=== PATIENT | male | born 1975 | race Caucasian/White ===

== ENCOUNTER 2022-08-03 14:00 | Outpatient (CLI) | payer OTHER, SELFPAY ==
--- NOTE | ~2022-08-03 | XR_ITS ---
XR abdomen/kub 1V 08/03/2022 14:34 Indication: Kidney stones Procedure: KUB Comparison: No prior studies for comparison. Findings: Bowel gas pattern nonobstructive. There is a right internal ureteral stent. No calcificatio ns are identified to suggest renal or ureteral stones. Moderate lumbar spondylosis. Moderate osteoart hritis of the hips. Impression: 1: No acute abdominal abnormality. Reviewed, dictated and finalized at location A. Impression: 1: No acute abdominal abnormality.
== END 2022-08-03 14:01 | disposition home or self-care (01) ==
LOC: ANHIMG 14:09
PROVIDERS: PCP Urology; Visit Provider Urology
DX: N20.0 Calculus of kidney (principal); Z87.442 Personal history of urinary calculi
CPT/HCPCS: 74018

== ENCOUNTER 2023-04-13 11:42 | Outpatient (CLI) | payer OTHER, SELFPAY ==
[2023-04-13 12:22] LABS: Urine Cotinine NEGATIVE
== END 2023-04-13 11:43 | disposition home or self-care (01) ==
LOC: ANHLAB 11:44
PROVIDERS: Visit Provider Orthopaedic Surgery
DX: M16.11 Unilateral primary osteoarthritis, right hip (principal); F17.200 Nicotine dependence, unspecified, uncomplicated
CPT/HCPCS: 80307

== ENCOUNTER 2023-05-24 07:41 | Outpatient (CLI) | payer OTHER, SELFPAY ==
[2023-05-24 09:11] LABS: Basophils Percent Auto 0.5 % (0.2-1.2); Eosinophils Absolute Auto 0.2 K/mm3 (0-0.3); Eosinophils Percent Auto 2.5 % (0-4.4); Hemoglobin 14.6 g/dL (14.0-18.0); Immature Granulocyte Absolute 0.01 K/mm3 (0.00-0.031); Immature Granulocyte Percent A 0.2 % (0-0.5); Lymphocytes Absolute Auto 2.17 K/mm3 (0.9-3.2); Lymphocytes Percent Auto 34.5 % (18.3-44.2); Mean Corpuscular HGB Conc 33.2 g/dl (32-36); Mean Corpuscular Hemoglobin 33.2 pg (26-34); Mean Platelet Volume 9.4 fl (7.4-10.4); Monocytes Absolute Auto 0.7 K/mm3 (0.1-0.6); Monocytes Percent Auto 11.4 % (2.6-8.5); Neutrophils Absolute Auto 3.2 K/mm3 (1.3-6.7); Neutrophils Percent Auto 50.9 % (45.5-73.1); Platelet Count Result 181 k/mm3 (150-375); Red Cell Distribution Width 11.8 % (11.5-14.5); White Blood Count 6.3 K/mm3 (4.5-10.0)
[2023-05-24 09:20] LABS: Albumin Level 4.6 g/dL (3.5-5.1); Estimated Glomerular Filt Rate > 60; Glucose 83 mg/dL (65-110); Urine Cotinine NEGATIVE
[2023-05-24 09:25] LABS: Hemoglobin A1C 5.2 % (<5.7)
== END 2023-05-24 07:42 | disposition home or self-care (01) ==
PROVIDERS: Visit Provider Orthopaedic Surgery
DX: M16.11 Unilateral primary osteoarthritis, right hip (principal); Z01.818 Encounter for other preprocedural examination
CPT/HCPCS: 80307; 82040; 82565; 82947; 83036; 85025; 87081

== ENCOUNTER 2023-06-21 01:53 | Day surgery (SDC) | payer OTHER, SELFPAY ==
[2023-05-24 07:47] VITALS: BP 139/90; PULSE 80; RESP 16; TEMP 37; O2SAT 100
[2023-05-24 08:09] VITALS: BMI 39.2
--- NOTE | 2023-05-24 08:34 | PC.NURSE ---
Report to the Outpatient Waiting Room, entrance under the green pavilion located off [facility], at time __10:00AM on date ___06/21/23____. Planned Procedure Time: __12:00PM . Time changes happen often and if your time is changed the preop area will call you the afternoon before. - You and your visitor will be asked to self-screen and do not enter if you have any COVID symptoms. - A mask is optional within the hospital at this time. Patients may have clear liquids (water, carbonated beverages, clear teas, apple juice) until 3 hours prior to surgery with a maximum of 20 ounces. - No food from midnight until time of surgery Take the following medications with a SIP of water the morning of surgery: ___BUPROPION DO NOT STOP ANY OF YOUR OTHER PRESCRIPTION MEDICATIONS PRIOR TO SURGERY ?EXCEPT THE FOLLOWING Medications to discontinue per physician __HOLD MELOXICAM, IBUPROFEN, ALEVE 7 DAYS PRE-OP- LAST DOSE-06/14/23 AND HOLD ALL VITAMINS/SUPPLEMENTS 3 DAYS PRE-OP PER ANESTHESIA- LAST DOSE 06/17/23 Please no make-up, nail malaysian, hairspray, perfume, deodorant, or body powder the day of surgery. No jewelry (including any body piercings) or valuables the day of surgery, leave them at home. Please take a shower or bath the night before, or the morning of, surgery with an antibacterial soap. Wear comfortable, loose fitting clothing. Children are encouraged to wear pajamas. - Jewelry must be removed prior to entering the operating room. Rings and piercings that are not removed may be cut off. - The hospital will not accept responsibility for valuables. - Please leave all valuables, including medications, at home the day of surgery. If you are going home after surgery, a licensed crude oil driver must drive you home. - NO public transportation without another adult if you receive anesthesia. - We recommend that an adult stay with you for 24 hours following discharge. - We also recommend that you do not drive, make important decision, drink alcoholic beverages, or take any drugs that were not prescribed by your health care provider for at least 24 hours after your discharge time. Follow any additional instructions given to you from your surgeon. If you or anyone in your household have experienced Covid symptoms in the past week, please notify your surgeon or the nurse liaison at the phone number below for possible testing. Telephone instructions given to __PATIENT and asked if any additional questions and then verbalized understanding. Patient advised to call surgeon office or pre surgery nurse liaison [phone] if any additional questions.
[2023-06-21] VITALS (11 sets, daily range): BP systolic 122–142; BP diastolic 71–93; PULSE 54–93; RESP 14–18; TEMP 36.2–36.7; O2SAT 95–100
--- NOTE | ~2023-06-21 | XR_ITS ---
EXAMINATION: XR hip RT min 2V DATE: 06/21/2023 14:52 INDICATION: Right total hip arthroplasty TECHNIQUE: Anteroposterior and cross-table lateral views of the right hip were obtained. COMPARISON: 03/08/2023 FINDINGS: Interval placement of a noncemented right total hip arthroplasty appears well seated in near-anatomic alignment. No fracture. Expected small amount of soft tissue gas at the operative bed. IMPRESSION: 1. Expected appearance of a right total hip arthroplasty which is in near-anatomic alignment. Reviewed, dictated and finalized at location B. IMPRESSION: 1. Expected appearance of a right total hip arthroplasty which is in near-anato edvin alignment.
--- NOTE | 2023-06-21 09:21 | WPDHPUPDATE1 ---
History and Physical Update Update Date/Time: 06/21/23 09:21 History and Physical has been reviewed, including an updated exam of the patient. There are NO changes in the patient's condition. Risks, benefits, and alternatives have been discussed and questions answered. Patient agrees to proceed with procedure.
[2023-06-21] MEDS: ACETAMINOPHEN 500 MG TABLET 1000 MG PO (10:55)
--- NOTE | 2023-06-21 10:55 | WPDANESEPPF ---
Anes - Initial Pre Proc Eval Procedure: Operation Date: 06/21/23 12:00 Proposed Procedures p Right Total Hip Arthroplasty - Jose Izquierdo MD Date/Time: 06/21/23 10:55 Surgeon: Jose Izquierdo MD Pre Op Diagnosis: Prim OA Rt Hip Patient Data Age: 48 Gender: M Height: 1.75 m Weight: 116.3 kg Last Vital Signs Temp 36.2 C L 06/21/23 09:48 Pulse 72 06/21/23 09:48 Resp 18 06/21/23 09:48 BP 142/88 H 06/21/23 09:48 Pulse Ox 100 06/21/23 09:48 O2 Del Method Room Air 06/21/23 09:48 Allergies Allergy/AdvReac Type Severity Reaction Status Date / Time No Known Allergies Allergy Verified 06/21/23 09:50 Home Medications Medication Instructions Recorded Confirmed Type atorvastatin 10 mg tablet 10 mg PO HS 03/08/23 06/21/23 History cyclobenzaprine 5 mg tablet 5 mg PO TID PRN Muscle Spasm 03/08/23 06/21/23 History pantoprazole 40 mg tablet,delayed 40 mg PO QAM 03/08/23 06/21/23 History release acetaminophen 500 mg capsule 1,000 mg PO Q6H PRN Pain 05/24/23 06/21/23 History famotidine 40 mg tablet 40 mg PO DAILY 05/24/23 06/21/23 History ferrous sulfate 325 mg (65 mg 325 mg PO 4XW 05/24/23 06/21/23 History iron) tablet ibuprofen 200 mg capsule 200 mg PO Q6H PRN Pain 05/24/23 06/21/23 History multivitamin-ferrous 1 tablet PO DAILY 05/24/23 06/21/23 History fumarate-folic acid 18 mg-400 mcg tablet (Centrum) naproxen sodium 220 mg capsule 220 mg PO BID PRN Pain 05/24/23 06/21/23 History (Aleve) tamsulosin 0.4 mg capsule 0.4 mg PO HS 05/24/23 06/21/23 History trazodone 100 mg tablet 100 mg PO HS PRN Insomnia 05/24/23 06/21/23 History Patient hx anesthesia problems: none Family hx anesthesia problems: none Results Review: All pre-operative results and documents have been reviewed as part of the pre-operative evaluation. [facility] Past Medical History Medical History (Updated 06/21/23 @ 10:56 by Viktor Wood MD) Current smoker Diabetes History of stress test ALLIE (obstructive sleep apnea) Surgical History Surgical History H/O gastric sleeve (~2015) History of medial meniscus repair of right knee (~2005) Family History Family History Unknown Cancer Social History Social History Smoking packs per day: 2 Smoking cigarettes per day: 40.0 Years smoked: 6 Smoking pack-years: 12.00 Smoking status: Former smoker Tobacco type: cigarettes Smoking end date: 04/24/23 Additional smoking assessment comments: USING NICOTINE-FREE VAPING CURRENTLY Alcohol intake: former Alcohol use details: VERY HEAVY DRINKER [id number] Lack of Transportation: No Lack of Food: Never True Current Housing: I Have Housing Concerned About Future Housing: No Difficulty Paying Gas/Electric Bills: No Difficulty Paying for Meds: No Currently Unemployed: No Education: High School Diploma/GED Difficulty w/ Childcare or Family Care: No Living arrangements: with family Additional living arrangements comments: & [place] Spiritual care concerns: No Anes - Eval Final PreProcedure Day of Procedure 06/21/23 10:55 Heart: regular rate and rhythm Lungs: clear to auscultation Airway: Mallampati scale class 1 Neurological: alert and oriented Last oral intake: >/= 8 hours ASA classification: IV Emergent: no Anesthetic plan: proceed Anesthesia type and monitoring: general ETT and standard monitoring Results Review: All pre-operative results and documents have been reviewed as part of the pre-operative evaluation. Informed Consent: The patient's anesthetic plan and its attendant risks and benefits were discussed with the patient/family/POA. Questions were solicited and answers provided to the satisfaction of the patient/family/POA.
[2023-06-21] MEDS: LACTATED RINGERS 1,000 ML 30 ML IV CONT ×2 (11:00→14:41)
[2023-06-21] MEDS: TRANEXAMIC ACID 1,000MG/ISO100 1,000 MG/100 ML BAG 200 MG IVPB (11:04)
[2023-06-21] MEDS: ceFAZolin 2 GM/D5W 50 ML 2 GM/50 ML BAG IVPB (12:18)
[2023-06-21] MEDS: fentaNYL CITRATE INJ (*CRX) 100 MCG/2 ML VIAL 25 MCG IV PUSH ×8 (14:50→15:47)
--- NOTE | 2023-06-21 15:13 | W.PM.PROC2 ---
Procedure Note - Detailed Date of Procedure 06/21/23 Pre-op Diagnosis Right hip degenerative arthritis. Post-op Diagnosis Same Procedure Performed Right Total Hip Arthroplasty Surgeon Jose Izquierdo MD Anesthesia General Findings Low femoral anteversion. Elevated liner used. Good bone quality. Description of Procedure The patient was given preoperative antibiotics. A general anesthetic was administered. The patient was carefully placed in the lateral decubitus position on the PEG board. The shoulders and hips were carefully positioned for component and leg length positioning reference. The hip was prepped and draped in the usual sterile fashion. A longitudinal incision was created over the posterior aspect of the greater trochanter. Careful dissection was brought down through the deep fascia with electrocautery. A minimally invasive optimized posterior approach to the hip was performed. The short external rotators and capsule were taken down in an L-shaped capsulotomy. The tissue was tagged for later repair using number 2 high strength suture. The femoral neck was measured and taken in situ. The femoral head was removed. The acetabulum was carefully exposed. The inferior capsule was released. The labrum was resected. The acetabulum was sequentially reamed to the intended cup size. The cup was impacted into position with excellent press-fit. Typical anatomic landmarks, including the bony contact points as well as the inferior transverse acetabular ligament were used to confirm cup positioning with preoperative templating. Attention was turned to the femur, which was carefully exposed. The hip was reamed and then broached sequentially. Excellent press-fit was obtained with the broach. The hip was trialed. Measurements were utilized, including the lesser trochanter as well as the center of the femoral head and the tip of the trochanter, and excellent assessment of the offset and leg lengths were confirmed. The real component was impacted into position. Trialing confirmed appropriate leg length and offset with soft tissue balancing as well apparent feel of the leg, both at the knee and the heel. Soft tissues were assessed using the the iliotibial band. Reduction of the posterior capsule and external rotators were also used as a secondary assessment. The hip was copiously irrigated with pulsatile lavage antibiotic solution periodically throughout the procedure. The real components were then assembled and reduced. The hip was stable throughout typical maneuvers, including extension, external rotation to 70 degrees, the position of sleep as well as flexion to 90 degrees with internal rotation past 45 degrees. The shake test confirmed stability without impingement. Osteophytes were removed as necessary. The short external rotators and capsule were repaired back to the posterior trochanter through drill holes. The deep fascia was repaired with running number 2 Quill suture, followed by 0 Stratafix suture and 2-0 Stratafix suture in the dermis. Steri-Strips were placed on the skin, followed by a sterile silver occlusive dressing. There were no complications. Meticulous hemostasis was maintained with the AquaMantys device. The patient was brought to the recovery room in stable condition. There were no complications. Implants The Accolade II hip stem, 127 degree size 5 , was utilized with excellent press-fit. The 54 mm Trident II acetabular component was impacted with excellent press-fit stability. The +0, 36 mm Biolox ceramic femoral head was utilized. 10 degree elevated liner. Estimated Blood Loss -500.0 Drains No Packing No Pathology None sent Complications No immediate complications Condition Stable Disposition PACU [facility] Billing Surgery - Charge Forward: Surgery Billing
--- NOTE | 2023-06-21 16:21 | ADMGEN ---
This patient, Juan Dean, was admitted to [facility] Surg Room 323-02. Patient/family oriented to hospital policies and general routines including ID bracelet, bed and alarms, visiting hours, pain management, procedures, bathroom and other care routines, personal items, smoking policy, room service/diet, and visiting hours. Information on how to activate the Rapid Response Team has been discussed. Patient/Family are encouraged to report perceived risks to care and to ask questions if they do not understand what they are told or what they should do.
[2023-06-21] MEDS: SENNA/DOCUSATE SODIUM TABLET 2 TAB PO (16:47)
[2023-06-21] MEDS: ASPIRIN 81 MG ENTERIC TABLET PO (16:51)
[2023-06-21] MEDS: MELOXICAM 7.5 MG TABLET PO (16:52)
[2023-06-21] MEDS: oxyCODONE HCL (*CRX) 5 MG TAB IR PO ×2 (16:52→20:56)
[2023-06-21] MEDS: ceFAZolin 1 GM/NS 50 ML 1 GM/50 ML BAG IVPB (20:44)
[2023-06-21] MEDS: TAMSULOSIN HCL 0.4 MG CAPSULE PO (20:45)
[2023-06-21] MEDS: ATORVASTATIN 10 MG TABLET PO (20:45)
[2023-06-22] MEDS: CYCLOBENZAPRINE HCL 5 MG TABLET PO ×2 (00:02→11:38)
[2023-06-22 00:59] VITALS: BP 120/75; PULSE 99; RESP 20; TEMP 37.4; O2SAT 98
[2023-06-22] MEDS: oxyCODONE HCL (*CRX) 5 MG TAB IR 10 MG PO ×3 (01:19→11:38)
[2023-06-22] MEDS: ceFAZolin 1 GM/NS 50 ML 1 GM/50 ML BAG IVPB ×2 (03:54→11:40)
[2023-06-22 05:40] VITALS: BP 112/62; PULSE 103; RESP 14; TEMP 37.2; O2SAT 99
[2023-06-22 06:56] VITALS: BP 116/69
[2023-06-22 07:21] LABS: Basophils Percent Auto 0.1 % (0.2-1.2); Eosinophils Percent Auto 0.1 % (0-4.4); Hematocrit 41.6 % (42.0-52.0); Immature Granulocyte Absolute 0.03 K/mm3 (0.00-0.031); Immature Granulocyte Percent A 0.3 % (0-0.5); Lymphocytes Absolute Auto 1.87 K/mm3 (0.9-3.2); Lymphocytes Percent Auto 16.6 % (18.3-44.2); Mean Corpuscular HGB Conc 33.7 g/dl (32-36); Mean Corpuscular Hemoglobin 32.4 pg (26-34); Mean Corpuscular Volume 96.3 fl (80-100); Mean Platelet Volume 9.6 fl (7.4-10.4); Monocytes Absolute Auto 1.1 K/mm3 (0.1-0.6); Neutrophils Absolute Auto 8.2 K/mm3 (1.3-6.7); Neutrophils Percent Auto 72.9 % (45.5-73.1); Platelet Count Result 165 k/mm3 (150-375); Red Blood Count 4.32 M/mm3 (4.6-6.20); Red Cell Distribution Width 11.5 % (11.5-14.5); White Blood Count 11.3 K/mm3 (4.5-10.0)
[2023-06-22 07:33] LABS: Anion Gap 6 mmol/L (8-16); Blood Urea Nitrogen 18 mg/dL (9-20); Calcium 8.5 mg/dL (8.4-10.2); Carbon Dioxide 26 mmol/L (22-30); Chloride 104 mmol/L (98-107); Estimated CRCL calculation 138 ml/min; Estimated Glomerular Filt Rate > 60; Glucose 108 mg/dL (65-110); Potassium 4.1 mmol/L (3.4-5.0); Sodium 136 mmol/L (137-145)
[2023-06-22] MEDS: FAMOTIDINE 20 MG TABLET 40 MG PO (08:39)
[2023-06-22] MEDS: PANTOPRAZOLE 40 MG TABLET PO (08:39)
[2023-06-22] MEDS: MELOXICAM 7.5 MG TABLET PO ×2 (08:39→16:51)
[2023-06-22] MEDS: predniSONE 5 MG TABLET PO (08:39)
[2023-06-22] MEDS: SENNA/DOCUSATE SODIUM TABLET 2 TAB PO ×2 (08:39→16:52)
[2023-06-22] MEDS: MULTIVITAMINS /C LUTEIN (CENTRUM SILVER) TABLET *BKC 1 TAB PO (08:39)
[2023-06-22] MEDS: polyethylene glycoL 3350 17 GM POWD.PACK PO (08:40)
[2023-06-22] MEDS: ASPIRIN 81 MG ENTERIC TABLET PO ×2 (08:40→16:51)
--- NOTE | 2023-06-22 08:55 | PCPTNOTE ---
Attempted PT evaluation, pt eating breakfast. Will follow.
--- NOTE | 2023-06-22 09:12 | WPDANESPN ---
Anes - Prog Note Post-Op Date/Time: 06/22/23 09:12 Cardiovascular status: normal Respiratory status: normal Airway patency: baseline Mental status: baseline Post-Op hydration status: normal Vital Signs: Last Vital Signs Temp 37.2 C 06/22/23 05:40 Pulse 103 H 06/22/23 05:40 Resp 14 06/22/23 05:40 BP 116/69 06/22/23 06:56 Pulse Ox 99 06/22/23 05:40 O2 Del Method Room Air 06/21/23 15:55 O2 Flow Rate 6 06/21/23 15:10 Pain Score (VAS): 0 I/O: Intake & Output 06/21/23 06/22/23 06/22/23 23:59 07:59 15:59 Intake Total 290 50 Output Total 500 Balance 290 -450 Laboratory Tests 06/22/23 06:36 06/22/23 06:36 06/21/23 06/22/23 10:53 06:36 WBC 11.3 H RBC 4.32 L Hgb 14.0 Hct 41.6 L MCV 96.3 MCH 32.4 MCHC 33.7 RDW 11.5 Plt Count 165 MPV 9.6 Immature Gran % (Auto) 0.3 Neut % (Auto) 72.9 Lymph % (Auto) 16.6 L [place] % (Auto) 10.0 H Eos % (Auto) 0.1 Baso % (Auto) 0.1 L Lymph # (Auto) 1.87 [place] # (Auto) 1.1 H Eos # (Auto) 0.0 Baso # (Auto) 0.0 Abs Immat Gran (auto) 0.03 Absolute Neuts (auto) 8.2 H Absolute Nucleated RBC 0.0 Nucleated RBC % 0.0 Sodium 136 L Potassium 4.1 Chloride 104 Carbon Dioxide 26 Anion Gap 6 L BUN 18 Creatinine 0.70 Estim Creat Clear Calc 138 Estimated GFR > 60 Glucose 108 Calcium 8.5 Blood Type O Positive Antibody Screen Negative Post-procedural complaints: none Patient Feedback: Patient satisfied with anesthetic care.
[2023-06-22 10:05] VITALS: BP 118/64; PULSE 86; RESP 16; TEMP 36.4; O2SAT 99
[2023-06-22 14:55] VITALS: BP 117/73; PULSE 98; RESP 18; TEMP 37.7; O2SAT 91
--- NOTE | 2023-06-22 15:20 | PM.DS ---
DS: Admitting Diagnosis Discharge Date 06/22/23 Admitting Diagnosis Right hip arthritis. DS: Discharge Diagnosis Discharge Diagnosis (1) Status post total hip replacement, right: Code(s): Z96.641 - Presence of right artificial hip joint Status: Acute DS: Summary Hospital Course Reason for hospitalization: Total hip arthroplasty. Hospital Course: Tolerated surgery well. Progressed appropriately with therapy. Status at Discharge Functional status at discharge: uses cane/walker Overall status at discharge: patient is progressing back to baseline Time Spent with Patient Time attestation: Total time spent providing and/or coordinating discharge services: Exam Const: General: no acute distress Resp: Effort & Inspection: normal respiratory effort Skin: Other: Wound healing well. Mepilex dressing intact. No hematoma or drainage. Neuro: Motor exam (neuro): 5/5 motor strength present throughout Sensory Exam: normal sensation Psych: Mental Status: mental status grossly normal Speech and movement: Normal speech and movement present DS: Data Data Completed and Pending Labs on day of discharge: Labs from last 24 hours 06/22/23 06:36 WBC 11.3 H RBC 4.32 L Hgb 14.0 Hct 41.6 L MCV 96.3 MCH 32.4 MCHC 33.7 RDW 11.5 Plt Count 165 MPV 9.6 Immature Gran % (Auto) 0.3 Neut % (Auto) 72.9 Lymph % (Auto) 16.6 L [place] % (Auto) 10.0 H Eos % (Auto) 0.1 Baso % (Auto) 0.1 L Lymph # (Auto) 1.87 [place] # (Auto) 1.1 H Eos # (Auto) 0.0 Baso # (Auto) 0.0 Abs Immat Gran (auto) 0.03 Absolute Neuts (auto) 8.2 H Absolute Nucleated RBC 0.0 Nucleated RBC % 0.0 Sodium 136 L Potassium 4.1 Chloride 104 Carbon Dioxide 26 Anion Gap 6 L BUN 18 Creatinine 0.70 Estim Creat Clear Calc 138 Estimated GFR > 60 Glucose 108 Calcium 8.5 Discharge Plan Discharge Patient Disposition: Home, Self-Care Discharge Instructions: See instruction sheet. Stand Alone Forms: General Discharge Instructions Follow-up/Referrals: Jose Izquierdo MD [Physician] - Discharge Medications: New aspirin [Enteric Coated Aspirin] 81 mg tablet,delayed release (DR/EC) 81 mg PO DAILY Qty: 28 0RF cephalexin 500 mg capsule 500 mg PO Q8H Qty: 42 0RF prednisone 5 mg tablet 5 mg PO DAILY Qty: 10 0RF meloxicam 7.5 mg tablet 7.5 mg PO .twice daily Qty: 60 0RF oxycodone-acetaminophen 5-325 mg tablet 1 - 2 tablet PO Q6H MDD 6 tablets PRN (Reason: pain) Qty: 30 0RF Continued cyclobenzaprine 5 mg tablet 5 mg PO TID PRN (Reason: Muscle Spasm) pantoprazole 40 mg tablet,delayed release (DR/EC) 40 mg PO QAM atorvastatin 10 mg tablet 10 mg PO HS famotidine 40 mg Tablet 40 mg PO DAILY tamsulosin 0.4 mg capsule 0.4 mg PO HS trazodone 100 mg tablet 100 mg PO HS PRN (Reason: Insomnia) ferrous sulfate 325 mg (65 mg iron) Tablet 325 mg PO 4XW Centrum 18-400 mg-mcg Tablet 1 tablet PO DAILY acetaminophen 500 mg Capsule 1,000 mg PO Q6H PRN (Reason: Pain) Discontinued ibuprofen 200 mg Capsule 200 mg PO Q6H PRN (Reason: Pain) naproxen sodium [Aleve] 220 mg Capsule 220 mg PO BID PRN (Reason: Pain)
[2023-06-22] MEDS: oxyCODONE HCL (*CRX) 5 MG TAB IR PO (16:52)
== END 2023-06-22 18:05 | disposition home or self-care (01) ==
LOC: ANHSURGERY 09:35 → ANH3MEDSUR 16:14
PROVIDERS: Visit Provider Orthopaedic Surgery
PROC: (CPT 27130; principal; 2023-06-21 12:00)
DX: M16.11 Unilateral primary osteoarthritis, right hip (principal); E11.9 Type 2 diabetes mellitus without complications; G47.33 Obstructive sleep apnea (adult) (pediatric); F17.290 Nicotine dependence, other tobacco product, uncomplicated
CPT/HCPCS: 27130; 36415; 73502; 80048; 80307; 82040; 82565; 82947; 83036; 85025; 86850; 86900; 86901; 87081; 97110; 97116; 97161; 97165; 97530; 97535; A9270; C1713; C1776; J0171; J0330; J0690; J1100; J1885; J2250; J2270; J2405; J2704; J2710; J2795; J3010; J7120; J7512

== ENCOUNTER 2023-07-26 02:29 | Day surgery (SDC) | payer OTHER, SELFPAY ==
[2023-07-15 14:25] VITALS: BMI 37.7
--- NOTE | 2023-07-15 14:31 | PC.NURSE ---
Report to the Outpatient Waiting Room, entrance under the green pavilion located off [facility], at time 1300 on date 07/26/23. Planned Procedure Time: 1500. Time changes happen often and if your time is changed the preop area will call you the afternoon before. - You and your visitor will be asked to self-screen and do not enter if you have any COVID symptoms. - A mask is optional within the hospital at this time. Patients may have clear liquids (water, carbonated beverages, clear teas, apple juice) until 3 hours prior to surgery with a maximum of 20 ounces. - No food from midnight until time of surgery Take the following medications with a SIP of water the morning of surgery: PAIN PILL IF NEEDED DO NOT STOP ANY OF YOUR OTHER PRESCRIPTION MEDICATIONS PRIOR TO SURGERY ?EXCEPT THE FOLLOWING Medications to discontinue per physician: VITAMINS/SUPPLEMENTS Date to take last dose: 07/22/23 STOP ASPIRIN & MELOXICAM 07/18/23 Please no make-up, nail cuban, hairspray, perfume, deodorant, or body powder the day of surgery. No jewelry (including any body piercings) or valuables the day of surgery, leave them at home. Please take a shower or bath the night before, or the morning of, surgery with an antibacterial soap. Wear comfortable, loose fitting clothing. - Jewelry must be removed prior to entering the operating room. Rings and piercings that are not removed may be cut off. - The hospital will not accept responsibility for valuables. - Please leave all valuables, including medications, at home the day of surgery. If you are going home after surgery, a licensed milk truck driver must drive you home. - NO public transportation without another adult if you receive anesthesia. - We recommend that an adult stay with you for 24 hours following discharge. - We also recommend that you do not drive, make important decision, drink alcoholic beverages, or take any drugs that were not prescribed by your health care provider for at least 24 hours after your discharge time. Follow any additional instructions given to you from your surgeon. If you or anyone in your household have experienced Covid symptoms in the past week, please notify your surgeon or the nurse liaison at the phone number below for possible testing. Telephone instructions given to PT - MOO ORTEGA and asked if any additional questions and then verbalized understanding. Patient advised to call surgeon office or pre surgery nurse liaison [phone] if any additional questions.
[2023-07-26] VITALS (9 sets, daily range): BP systolic 104–140; BP diastolic 73–97; PULSE 58–76; RESP 12–16; TEMP 36.1–36.6; O2SAT 99–100
[2023-07-26] MEDS: ACETAMINOPHEN 500 MG TABLET 1000 MG PO (09:41)
[2023-07-26] MEDS: LACTATED RINGERS 1,000 ML 30 ML IV CONT ×2 (10:21→13:46)
[2023-07-26] MEDS: KETOROLAC 15 MG/ML VIAL (*BKC) IV PUSH (10:56)
--- NOTE | 2023-07-26 11:09 | WPDANESEPPF ---
Anes - Initial Pre Proc Eval Procedure: Operation Date: 07/26/23 12:00 Proposed Procedures p Right Carpal and Cubital Tunnel Release, with Bilateral Carpometacarpal Joint Injections - Jose Izquierdo MD Date/Time: 07/26/23 11:09 Surgeon: Jose Izquierdo MD Pre Op Diagnosis: Rt Carpal & Cubital Tunnel syndrome Patient Data Age: 48 Gender: M Height: 1.79 m Weight: 117.5 kg Last Vital Signs Temp 36.6 C 07/26/23 10:28 Pulse 68 07/26/23 10:28 Resp 16 07/26/23 10:28 BP 104/73 07/26/23 10:28 Pulse Ox 99 07/26/23 10:28 O2 Del Method Room Air 07/26/23 10:28 Allergies Allergy/AdvReac Type Severity Reaction Status Date / Time No Known Allergies Allergy Verified 07/26/23 09:43 Home Medications Medication Instructions Recorded Confirmed Type atorvastatin 10 mg tablet 10 mg PO HS 03/08/23 07/26/23 History cyclobenzaprine 5 mg tablet 5 mg PO TID PRN Muscle Spasm 03/08/23 07/26/23 History pantoprazole 40 mg tablet,delayed 40 mg PO QAM 03/08/23 07/26/23 History release acetaminophen 500 mg capsule 1,000 mg PO Q6H PRN Pain 05/24/23 07/26/23 History famotidine 40 mg tablet 40 mg PO BID 05/24/23 07/26/23 History ferrous sulfate 325 mg (65 mg 325 mg PO 4XW 05/24/23 07/26/23 History iron) tablet multivitamin-ferrous 1 tablet PO DAILY 05/24/23 07/26/23 History fumarate-folic acid 18 mg-400 mcg tablet (Centrum) trazodone 100 mg tablet 100 mg PO HS PRN Insomnia 05/24/23 07/26/23 History aspirin 81 mg tablet,delayed 81 mg PO DAILY #28 tabs 06/22/23 07/26/23 Rx release (Enteric Coated Aspirin) meloxicam 7.5 mg tablet 7.5 mg PO .twice daily #60 tabs 06/22/23 07/26/23 Rx oxycodone-acetaminophen 5 mg-325 1 - 2 tablet PO Q6H PRN pain #30 07/12/23 07/26/23 Rx mg tablet tabs Patient hx anesthesia problems: none Family hx anesthesia problems: none Results Review: All pre-operative results and documents have been reviewed as part of the pre-operative evaluation. [facility] Past Medical History Medical History (Updated 07/26/23 @ 11:11 by Alonso William DO) Anxiety Asthma Current smoker Depression Diabetes Hiatal hernia History of stress test Hyperlipidemia Hypertension ALLIE (obstructive sleep apnea) Surgical History Surgical History H/O gastric sleeve (~2015) History of medial meniscus repair of right knee (~2005) Status post total hip replacement, right (~06/21/23) Family History Family History Unknown Cancer Social History Social History Smoking packs per day: 2 Smoking cigarettes per day: 40.0 Years smoked: 6 Smoking pack-years: 12.00 Smoking status: Former smoker Tobacco type: cigarettes Smoking end date: 04/24/23 Additional smoking assessment comments: USING NICOTINE-FREE VAPING CURRENTLY Alcohol intake: former Alcohol use details: HEAVY DRINKER Substance use: never Substance use type: does not use Lack of Transportation: No Lack of Food: Never True Current Housing: I Have Housing Concerned About Future Housing: No Difficulty Paying Gas/Electric Bills: No Difficulty Paying for Meds: No Currently Unemployed: No Education: High School Diploma/GED Difficulty w/ Childcare or Family Care: No Living arrangements: with family Additional living arrangements comments: & [place] Spiritual care concerns: No Anes - Eval Final PreProcedure Day of Procedure 07/26/23 11:09 Patient weight: obese Heart: regular rate and rhythm Lungs: clear to auscultation Airway: Mallampati scale class II Neurological: alert and oriented Last oral intake: >/= 8 hours ASA classification: III Emergent: no Anesthetic plan: proceed Anesthesia type and monitoring: general LMA and standard monitoring Results Review: All pre-operative re
--- NOTE | 2023-07-26 11:52 | WPDHPUPDATE1 ---
History and Physical Update Update Date/Time: 07/26/23 11:52 History and Physical has been reviewed, including an updated exam of the patient. There are NO changes in the patient's condition. Tiny superficial lateral elbow abrasion. Risks, benefits, and alternatives have been discussed and questions answered. Patient agrees to proceed with procedure.
[2023-07-26] MEDS: ceFAZolin 2 GM/D5W 50 ML 2 GM/50 ML BAG IVPB (12:06)
[2023-07-26] MEDS: BUPIVACAINE/EPINEPHRINE 0.5% 50 ML VIAL 15 ML INFILTRATE (12:36)
[2023-07-26] MEDS: methylPREDNISolone ACETATE 40 MG/ML VIAL I-ARTICULR (12:38)
[2023-07-26] MEDS: ONDANSETRON INJ 4 MG/2 ML VIAL IV PUSH (14:19)
[2023-07-26] MEDS: fentaNYL CITRATE INJ (*CRX) 100 MCG/2 ML VIAL 25 MCG IV PUSH ×4 (14:37→14:47)
[2023-07-26] MEDS: oxyCODONE HCL (*CRX) 5 MG TAB IR PO (15:21)
--- NOTE | 2023-07-26 16:47 | P.OP_ITS ---
Procedure Note - Detailed Date of Procedure 07/26/23 Pre-op Diagnosis 1. Right Carpal Tunnel syndrome 2. Right cubital tunnel syndrome 3. Thumb CMC joint arthritis bilateral. Post-op Diagnosis Same Procedure Performed Right 1. Carpal tunnel release 2. Cubital tunnel decompression 3. Injection of bilateral 1st carpometacarpal joints. Surgeon Jose Izquierdo MD Multiple Drum Sander Helper Berna Ashford PA-C Anesthesia General Description of Procedure A general anesthetic was administered. A nonsterile tourniquet was applied high on the arm. The arm was prepped and draped in the usual sterile fashion. The proposed incision was marked using typical anatomic landmarks. 4ML 0.5% Marcain e with epinephrine was injected along the incision line and at the distal forearm. The limb was exsanguinated and the tourniquet inflated to 250 millimeters of mercury. A longitudinal incision was taken sharply. Dissection was brought down to the transverse carpal ligament. Under direct vision the ligament was incised sharply. The proximal release was carried out with dissection scissors. The contents of the carpal canal were protected with a [place] elevator. The transverse carpal ligament was confirmed to be widely patent. Attention was turned to the elbow. A longitudinal incision was created posterior to the medial epicondyle. Careful dissection was brought down to the ulnar nerve. It was identified proximally and dissected to the cubital tunnel retinaculum. Careful dissection released the cubital tunnel retinaculum. The dissection was carried out to the flexor carpi the palmaris. The 1st motor branch was carefully identified and protected. Attention was turned proximally and the nerve was released proximally about 8cm. The arm was flexed and the nerve was assessed. The nerve was stable. The course of the nerve was very nice without evidence of compression or instability. The tourniquet was released to assure that there was no significant bleeding. Meticulous hemostasis was maintained. The skin was closed with interrupted 3-0 Monocryl suture followed by running 4-0 Monocryl suture and Steri-Strips. Sterile dressing was applied with a soft splint at the wrist and a hard splint at the elbow. The patient was extubated and brought to the recovery room in stable condition. The 1st CMC joint of both hands was injected with 40 mg of Depo-Medrol and 0.5 mL of 0.25% Marcaine with epinephrine. Physician medical office receptionist assistant, Berna Ashford PA-C, required for surgery; including patient positioning, draping, tissue retraction, maintaining instrument position, wound closure, and dressing placement. Estimated Blood Loss -5.0 Pathology None sent Complications No immediate complications Condition Stable Disposition PACU [facility] Billing Surgery - Charge Forward: Surgery Billing
== END 2023-07-26 15:46 | disposition home or self-care (01) ==
PROVIDERS: Visit Provider Orthopaedic Surgery
PROC: (CPT 64721; principal; 2023-07-26 12:00)
DX: G56.01 Carpal tunnel syndrome, right upper limb (principal); G56.21 Lesion of ulnar nerve, right upper limb; M18.0 Bilateral primary osteoarthritis of first carpometacarpal joints; I10 Essential (primary) hypertension; E78.5 Hyperlipidemia, unspecified; G47.33 Obstructive sleep apnea (adult) (pediatric); E11.9 Type 2 diabetes mellitus without complications; F41.9 Anxiety disorder, unspecified; J45.909 Unspecified asthma, uncomplicated; Z98.84 Bariatric surgery status; Z87.891 Personal history of nicotine dependence; E66.9 Obesity, unspecified; Z68.36 Body mass index [BMI] 36.0-36.9, adult
CPT/HCPCS: 64721; 64718; 20600; A4565; A9270; J0690; J1030; J1885; J2250; J2405; J3010; J7120

== ENCOUNTER 2023-08-27 03:21 | Day surgery (SDC) | payer OTHER, SELFPAY ==
[2023-08-13 15:28] VITALS: BMI 38.8
--- NOTE | 2023-08-13 15:32 | PC.NURSE ---
Report to the Outpatient Waiting Room, entrance under the green pavilion located off [facility], at time _1300_ on date _[id number]_. Planned Procedure Time: _1500_. Time changes happen often and if your time is changed the preop area will call you the afternoon before. - You and your visitor will be asked to self-screen and do not enter if you have any COVID symptoms. - A mask is optional within the hospital at this time. Patients may have clear liquids (water, carbonated beverages, clear teas, apple juice) until 3 hours prior to surgery with a maximum of 20 ounces. - No food from midnight until time of surgery Take the following medications with a SIP of water the morning of surgery: ___None DO NOT STOP ANY OF YOUR OTHER PRESCRIPTION MEDICATIONS PRIOR TO SURGERY ?EXCEPT THE FOLLOWING Medications to discontinue per physician Vitamins Date to take last cyiq__[id number] Please no make-up, nail greek, hairspray, perfume, deodorant, or body powder the day of surgery. No jewelry (including any body piercings) or valuables the day of surgery, leave them at home. Please take a shower or bath the night before, or the morning of, surgery with an antibacterial soap. Wear comfortable, loose fitting clothing. - Jewelry must be removed prior to entering the operating room. Rings and piercings that are not removed may be cut off. - The hospital will not accept responsibility for valuables. - Please leave all valuables, including medications, at home the day of surgery. If you are going home after surgery, a licensed class a regional drivers must drive you home. - NO public transportation without another adult if you receive anesthesia. - We recommend that an adult stay with you for 24 hours following discharge. - We also recommend that you do not drive, make important decision, drink alcoholic beverages, or take any drugs that were not prescribed by your health care provider for at least 24 hours after your discharge time. Follow any additional instructions given to you from your surgeon. If you or anyone in your household have experienced Covid symptoms in the past week, please notify your surgeon or the nurse liaison at the phone number below for possible testing. Telephone instructions given to __Patient__and asked if any additional questions and then verbalized understanding. Patient advised to call surgeon office or pre surgery nurse liaison [phone] if any additional questions.
[2023-08-27 12:42] VITALS: BP 126/81; PULSE 71; RESP 16; TEMP 36.6; O2SAT 99
[2023-08-27] MEDS: LACTATED RINGERS 1,000 ML 30 ML IV CONT (13:17)
[2023-08-27] MEDS: ACETAMINOPHEN 500 MG TABLET 1000 MG PO (13:29)
[2023-08-27] MEDS: KETOROLAC 15 MG/ML VIAL (*BKC) IV PUSH (13:30)
--- NOTE | 2023-08-27 14:10 | WPDANESEPPF ---
Anes - Initial Pre Proc Eval Procedure: Operation Date: 08/27/23 15:00 Proposed Procedures p Left Carpal and Cubital Tunnel Release - Jose Izquierdo MD Date/Time: 08/27/23 14:10 Surgeon: Jose Izquierdo MD Pre Op Diagnosis: Left Carpal & Cubital Tunnel syndrome Patient Data Age: 48 Gender: M Height: 1.78 m Weight: 119.6 kg Last Vital Signs Temp 36.6 C 08/27/23 12:42 Pulse 71 08/27/23 12:42 Resp 16 08/27/23 12:42 BP 126/81 08/27/23 12:42 Pulse Ox 99 08/27/23 12:42 O2 Del Method Room Air 08/27/23 12:42 Allergies Allergy/AdvReac Type Severity Reaction Status Date / Time No Known Allergies Allergy Verified 08/27/23 12:45 Home Medications Medication Instructions Recorded Confirmed Type atorvastatin 10 mg tablet 10 mg PO HS 03/08/23 08/27/23 History cyclobenzaprine 5 mg tablet 5 mg PO TID PRN Muscle Spasm 03/08/23 08/27/23 History pantoprazole 40 mg tablet,delayed 40 mg PO QAM 03/08/23 08/27/23 History release acetaminophen 500 mg capsule 1,000 mg PO Q6H PRN Pain 05/24/23 08/27/23 History famotidine 40 mg tablet 40 mg PO BID 05/24/23 08/27/23 History ferrous sulfate 325 mg (65 mg 325 mg PO 4XW 05/24/23 08/27/23 History iron) tablet multivitamin-ferrous 1 tablet PO DAILY 05/24/23 08/27/23 History fumarate-folic acid 18 mg-400 mcg tablet (Centrum) trazodone 100 mg tablet 100 mg PO HS PRN Insomnia 05/24/23 08/27/23 History aspirin 81 mg tablet,delayed 81 mg PO DAILY #28 tabs 06/22/23 08/27/23 Rx release (Enteric Coated Aspirin) meloxicam 7.5 mg tablet 7.5 mg PO .twice daily #60 tabs 06/22/23 08/27/23 Rx hydrocodone 5 mg-acetaminophen 325 1 - 2 tablet PO Q4-6H PRN pain #30 08/27/23 Rx mg tablet tabs Patient hx anesthesia problems: none Family hx anesthesia problems: none Results Review: All pre-operative results and documents have been reviewed as part of the pre-operative evaluation. [facility] Past Medical History Medical History Anxiety Asthma Current smoker Depression Diabetes Hiatal hernia History of stress test Hyperlipidemia Hypertension ALLIE (obstructive sleep apnea) Surgical History Surgical History H/O gastric sleeve (~2015) History of carpal tunnel surgery of right wrist (~07/26/23) History of cubital tunnel surgery of right wrist History of medial meniscus repair of right knee (~2005) Status post total hip replacement, right (~06/21/23) Family History Family History Unknown Cancer Social History Social History Smoking packs per day: 2 Smoking cigarettes per day: 40.0 Years smoked: 6 Smoking pack-years: 12.00 Smoking status: Former smoker Tobacco type: cigarettes Smoking end date: 05/13/23 Additional smoking assessment comments: USING NICOTINE-FREE VAPING CURRENTLY Alcohol intake: former Alcohol use details: HEAVY DRINKER Substance use: never Substance use type: does not use Lack of Transportation: No Lack of Food: Never True Current Housing: I Have Housing Concerned About Future Housing: No Difficulty Paying Gas/Electric Bills: No Difficulty Paying for Meds: No Currently Unemployed: No Education: High School Diploma/GED Difficulty w/ Childcare or Family Care: No Living arrangements: with family Additional living arrangements comments: & [place] Spiritual care concerns: No Anes - Eval Final PreProcedure Day of Procedure 08/27/23 14:10 Patient weight: obese Heart: regular rate and rhythm Lungs: clear to auscultation Airway: Mallampati scale class II Neurological: alert and oriented Last oral intake: >/= 8 hours ASA classification: III Emergent: no Anesthetic plan: proceed Anesthesia type and monitoring: general LMA and standard monitoring
--- NOTE | 2023-08-27 14:36 | WPDHPUPDATE1 ---
History and Physical Update Update Date/Time: 08/27/23 14:36 History and Physical has been reviewed, including an updated exam of the patient. There are NO changes in the patient's condition. Risks, benefits, and alternatives have been discussed and questions answered. Patient agrees to proceed with procedure.
[2023-08-27] MEDS: ceFAZolin SODIUM 1 GM VIAL 3 GM IV PUSH (15:25)
[2023-08-27] MEDS: BUPIVACAINE/EPINEPHRINE 0.5% 50 ML VIAL INFILTRATE (15:27)
[2023-08-27 16:20] VITALS: BP 119/83; PULSE 78; RESP 17; TEMP 36.4; O2SAT 98
[2023-08-27 16:30] VITALS: BP 117/81; PULSE 68; RESP 14; O2SAT 100
[2023-08-27 16:45] VITALS: BP 112/77; PULSE 70; RESP 20; O2SAT 100
[2023-08-27 16:49] VITALS: BP 125/88; PULSE 80; RESP 20
--- NOTE | 2023-08-27 16:52 | P.OP_ITS ---
Procedure Note - Detailed Date of Procedure 08/27/23 Pre-op Diagnosis Left Carpal & Cubital Tunnel syndrome Post-op Diagnosis Same Procedure Performed Left 1. Carpal tunnel release 2. Cubital tunnel decompression Surgeon Jose Izquierdo MD Print Shop Stenographer Berna Ashford PA-C Anesthesia General Findings The nerve appeared quite inflamed and swollen at the cubital tunnel. The appearance was very similar to the contralateral elbow. A distal subcutaneous nerve branch was identified and preserved. Description of Procedure A?general anesthetic was administered.? A nonsterile tourniquet was applied high on the arm.? The arm was prepped and draped in the usual sterile fashion.? The proposed incision was marked using typical anatomic landmarks. 4ML? 0.5% Marcaine with epinephrine was injected along the incision line and at the distal forearm.? The limb was exsanguinated and the tourniquet inflated to 250 millimeters of mercury.? A longitudinal incision was taken sharply.? Dissection was brought down to the transverse carpal ligament.? Under direct vision the ligament was incised sharply.? The proximal release was carried out with dissection scissors.? The contents of the carpal canal were protected with a [place] elevator.? The transverse carpal ligament was confirmed to be widely patent. Attention was turned to the elbow.? A longitudinal incision was created posterior to the medial epicondyle.? Careful dissection was brought down to the ulnar nerve.? It was identified proximally and dissected to the cubital tunnel retinaculum.? Careful dissection released the cubital tunnel retinaculum.? The dissection was carried out to the flexor carpi the palmaris.? The 1st motor branch was carefully identified and protected.? Attention was turned proximally and the nerve was released proximally about 8cm.? The arm was flexed and the nerve was assessed. The nerve was stable.? The course of the nerve was very nice without evidence of compression or instability. The tourniquet was released to assure that there was no significant bleeding.? Meticulous hemostasis was maintained.? The skin was closed with interrupted 3-0 Monocryl suture followed by running 4-0 Monocryl suture and Steri-Strips.? Sterile dressing was applied with a soft splint at the wrist and a hard splint at the elbow.? The patient was extubated and brought to the recovery room in stable condition. Estimated Blood Loss -5.0 Pathology None sent Complications No immediate complications Condition Stable Disposition PACU [facility] Billing Surgery - Charge Forward: Surgery Billing
[2023-08-27 17:13] VITALS: BP 112/80; PULSE 78; RESP 20
== END 2023-08-27 17:16 | disposition home or self-care (01) ==
PROVIDERS: Visit Provider Orthopaedic Surgery
PROC: (CPT 64721; principal; 2023-08-27 15:00)
DX: G56.02 Carpal tunnel syndrome, left upper limb (principal); G56.22 Lesion of ulnar nerve, left upper limb; E11.9 Type 2 diabetes mellitus without complications; I10 Essential (primary) hypertension; E78.5 Hyperlipidemia, unspecified; G47.33 Obstructive sleep apnea (adult) (pediatric); F41.9 Anxiety disorder, unspecified; F32.A Depression, unspecified; Z79.82 Long term (current) use of aspirin; Z98.84 Bariatric surgery status; F17.290 Nicotine dependence, other tobacco product, uncomplicated; E66.9 Obesity, unspecified; Z68.37 Body mass index [BMI] 37.0-37.9, adult
CPT/HCPCS: 64721; 64718; A9270; J0690; J1100; J1885; J2250; J2405; J2704; J3010; J7120

== ENCOUNTER 2024-06-19 09:11 | Outpatient (CLI) | payer OTHER, SELFPAY ==
--- NOTE | ~2024-06-19 | XR_ITS ---
XR hip RT 2V w AP pelvis Ordering provider: Jose Izquierdo MD History: . Z96.641 - Presence of right artificial hip joint . Comparison: August 09, 2023 FINDINGS: BONES: No acute fracture or dislocation. HIP JOINT SPACES: Right hip arthroplasty. Left mild to moderate osteoarthritic changes. SACROILIAC JOINT SPACES/LUMBAR SPINE: The sacroiliac joint spaces are normal. Mild degenerative buchanan es of the visualized lower lumbar spine. PUBIC SYMPHYSIS: Normal. SOFT TISSUES: Normal. IMPRESSION: No acute osseous abnormality pelvis and right hip. Right hip arthroplasty unchanged. Reviewed, dictated and finalized at location A. IMPRESSION: No acute osseous abnormality pelvis and right hip. Right hip arthroplasty uncha nged.
== END 2024-06-19 09:12 | disposition home or self-care (01) ==
LOC: ANHIMG 09:13
PROVIDERS: Visit Provider Orthopaedic Surgery
DX: Z96.641 Presence of right artificial hip joint (principal)
CPT/HCPCS: 73502

== ENCOUNTER 2024-11-16 21:59 | Emergency (ER) | payer OTHER, SELFPAY ==
--- NOTE | ~2024-11-16 | CT_ITS ---
CT brain wo con Ordering provider: Shaq Cohn DO History: 49 years Male with . paresthesia, leg weakness . Comparison: None. Technique: CT of the head without contrast. Radiation reduction technique utilized.The dose-length product was 756.67 mGy-cm. FINDINGS: BRAIN PARENCHYMA AND CSF SPACES: No midline shift, mass effect or hemorrhage. The brain parenchyma a nd CSF spaces are otherwise normal. VISUALIZED PARANASAL SINUSES: Well aerated. MASTOIDS: Well aerated. BONES: The bones appear intact. SOFT TISSUES: Visualized nasopharynx is normal. Superficial soft tissues are normal. IMPRESSION: No acute intracranial findings. Reviewed, dictated and finalized at location A. S SERVICE MANAGER
[2024-11-16 21:59] VITALS: BP 139/101; PULSE 93; RESP 18; TEMP 36.6; O2SAT 96
[2024-11-16 22:03] VITALS: BP 139/101; PULSE 85; RESP 18; TEMP 36.7; O2SAT 98
--- NOTE | 2024-11-16 22:08 | ECG_ITS ---
Test Date: 2024-11-16 22:32:19 Measurements Intervals [place] Rate: 89 P: 42 SC: 169 QRS: 24 QRSD: 112 T: 35 QT: 389 QTc: 476 Interpretive Statements SINUS RHYTHM No previous ECG available for comparison Electronically Signed On 11-17-2024 12:29:16 ASSESSOR by Bettye Marinelli M.D.
--- NOTE | 2024-11-16 22:15 | PC.NURSE ---
TRANSPORTED TO CT VIA STRETCHER
--- NOTE | 2024-11-16 22:15 | ED_ITS ---
HPI - General Adult General Chief complaint: Neuro Symptoms/Deficit Stated complaint: weakness Time Seen by Provider: 11/16/24 22:07 History of Present Illness HPI narrative: Red is a 49M with a previous history of cervical spine surgery, weight loss surgery, HLD, GERD, and anxiety that presented to the ED via EMS. He was driving down the highway when he started to get anxious then he started to get tingling and twitching in his mouth, upper extremities follow by tightness in his chest and weakness in his legs so he pulled over and called EMS. Symptoms were improving when he came in. No neck pain, vision changes, no nausea or vomiting. Related Data Home Medications ?Medication ?Instructions ?Recorded ?Confirmed ?Last Taken ?Type atorvastatin 10 mg tablet 10 mg PO HS 03/08/23 06/19/24 07/19/23 History cyclobenzaprine 5 mg tablet 5 mg PO TID PRN Muscle Spasm 03/08/23 06/19/24 07/19/23 History pantoprazole 40 mg tablet,delayed 40 mg PO QAM 03/08/23 06/19/24 07/19/23 History release acetaminophen 500 mg capsule 1,000 mg PO Q6H PRN Pain 05/24/23 06/19/24 07/19/23 History famotidine 40 mg tablet 40 mg PO BID 05/24/23 06/19/24 07/25/23 09:00 History ferrous sulfate 325 mg (65 mg 325 mg PO 4XW 05/24/23 06/19/24 07/19/23 History iron) tablet multivitamin-ferrous 1 tablet PO DAILY 05/24/23 06/19/24 07/19/23 History fumarate-folic acid 18 mg-400 mcg tablet (Centrum) trazodone 100 mg tablet 100 mg PO HS PRN Insomnia 05/24/23 06/19/24 06/15/23 History Allergies Allergy/AdvReac Type Severity Reaction Status Date / Time No Known Allergies Allergy Verified 11/16/24 22:11 Review of Systems 2 Review of Systems: All systems reviewed & are unremarkable except as noted in HPI and below PMFSH Past Medical History Medical History Depression Anxiety Hiatal hernia Asthma Hypertension Hyperlipidemia ALLIE (obstructive sleep apnea) Diabetes Current smoker History of stress test Surgical History Surgical History Status post decompression of ulnar nerve at elbow History of carpal tunnel surgery of right wrist (~07/26/23) History of cubital tunnel surgery of right wrist Status post total hip replacement, right (~06/21/23) H/O gastric sleeve (~2015) History of medial meniscus repair of right knee (~2005) Family History Family History Unknown Cancer Social History Social History Smoking packs per day: 2 Smoking cigarettes per day: 40.0 Years smoked: 6 Smoking pack-years: 12.00 Smoking status: Former smoker Tobacco type: cigarettes Smoking end date: 05/13/23 Additional smoking assessment comments: USING NICOTINE-FREE VAPING CURRENTLY Alcohol intake: former Alcohol use details: HEAVY DRINKER Substance use: never Substance use type: does not use Lack of Transportation: No Lack of Food: Never True Current Housing: I Have Housing Concerned About Future Housing: No Difficulty Paying Gas/Electric Bills: No Difficulty Paying for Meds: No Currently Unemployed: No Education: High School Diploma/GED Difficulty w/ Childcare or Family Care: No Living arrangements: with family Additional living arrangements comments: & [facility] Spiritual care concerns: No Exam 2 Const: General: cooperative, healthy appearing, comfortable, no acute distress, well developed, alert, awake and Physically active O rientation/consciousness: oriented to person, oriented to place and oriented to time HENMT: Head: normal to inspection, normocephalic and atraumatic Ears: h earing grossly normal bilaterally and external ears normal Face/Nose/Sinus: N ormal external nose present Eyes: General: appearance normal, both eyes and all related structures P eriorbital: periorbital findings normal Sclera: sclerae normal Pupils: E qual, round and reactive pupils present Neck: Neck: normal visual inspection Chest: Chest palpation & inspection: normal inspection of the chest Resp: Effort & Inspection: normal respiratory effort, able to speak in complete sentences and no respiratory distress Auscultation: clear to auscultation bilaterally Cardio: Jugular venous distension: no JVD Rate: regular rate Rhythm: r egular rhythm GI: Inspection: normal to inspection GI Palp: Yes Soft to palpation A uscultation: normal bowel sounds Skin: General skin exam: normal color and no rashes or lesions noted Neuro: General: oriented to person, oriented to place and oriented to time Cranial nerves: Yes Equal, round and reactive pupils present Speech: normal speech Other: CNII-XII intact as tested. Symmetrical strenght in the upper extremities, normal finger to nose NIH stroke scale of 0 Extrem: General: normal to inspection Psych: Mental Status: mental status grossly normal Affect: Anxious affect present Attitude: cooperative Other: Pressured speech Course Course Emergency Course: Ordered EKG, CT and labs CT brain wo con Ordering provider: Shaq Cohn DO History: 49 years Male with . paresthesia, leg weakness . Comparison: None. Technique: CT of the head without contrast. Radiation reduction technique utilized.The dose-length product was 756.67 mGy- cm. FINDINGS: BRAIN PARENCHYMA AND CSF SPACES: No midline shift, mass effect or hemorrhage. The brain parenchyma and CSF spaces are otherwise normal. VISUALIZED PARANASAL SINUSES: Well aerated. MASTOIDS: Well aerated. BONES: The bones appear intact. SOFT TISSUES: Visualized nasopharynx is normal. Superficial soft tissues are normal. IMPRESSION: No acute intracranial findings. EKG showed NSR with a rate of 89, normal axis, no ST elevation/depression or ectopy Labs showed only mild hypokalemia so he was given potassium and ativan to treat for presumed panic attack. As he is under a lot of stress from taking care of his mother with Alzheimer and with COVID and all his symptoms resolved after ativan it is most likely anxiety/panic. He no longer had chest pressure, dyspnea, or tingling. It was discussed that he should f/u with his regular provider for treatment of his anxiety. Vital Signs Vital signs: Vital Signs Temperature 97.8 F 11/16/24 21:59 Pulse Rate 93 11/16/24 21:59 Respiratory Rate 18 11/16/24 21:59 Blood Pressure 139/101 H 11/16/24 21:59 Pulse Oximetry 96 11/16/24 21:59 Oxygen Delivery Room Air 11/16/24 21:59 Temperature 98.1 F 11/16/24 22:03 Pulse Rate 91 11/16/24 22:31 Respiratory Rate 16 11/16/24 22:31 Blood Pressure 122/95 H 11/16/24 22:31 Pulse Oximetry 97 11/16/24 22:31 Oxygen Delivery Room Air 11/16/24 22:31 Medical Decision Making Vital Signs Vital Signs: Vital Signs Temperature 97.8 F 11/16/24 21:59 Pulse Rate 93 11/16/24 21:59 Respiratory Rate 18 11/16/24 21:59 Blood Pressure 139/101 H 11/16/24 21:59 Pulse Oximetry 96 11/16/24 21:59 Oxygen Delivery Room Air 11/16/24 21:59 Temperature 98.1 F 11/16/24 22:03 Pulse Rate 91 11/16/24 22:31 Respiratory Rate 16 11/16/24 22:31 Blood Pressure 122/95 H 11/16/24 22:31 Pulse Oximetry 97 11/16/24 22:31 Oxygen Delivery Room Air 11/16/24 22:31 Lab Data 11/16/24 22:24 11/16/24 22:24 Labs: Lab Results 11/16/24 11/16/24 Range/Units 22:24 22:52 WBC 8.9 (4.8-10.8) K/mm3 RBC 4.73 (4.70-6.10) M/mm3 Hgb 15.4 (14.0-18.0) g/dL Hct 45.0 (40.0-54.0) % MCV 95.1 (78.0-102.0) fL MCH 32.6 H (27.0-31.0) pg MCHC 34.2 (32-36) g/dL RDW 11.5 L (11.6-14.4) % Plt Count 210 (150-420) K/mm3 MPV 8.5 L (8.7-11.0) fl Immature Gran % (Auto) 0.3 H (0.0-0.0) % Neut % (Auto) 68.2 (50.0-70.0) % Lymph % (Auto) 21.6 (18.0-42.0) % [place] % (Auto) 9.2 (2.0-11.0) % Eos % (Auto) 0.4 L (1.0-6.0) % Baso % (Auto) 0.3 (0.0-1.0) % Lymph # (Auto) 1.93 (1.10-4.50) K/mm3 [place] # (Auto) 0.82 (0.10-0.90) K/mm3 Eos # (Auto) 0.04 (0.02-0.50) K/mm3 Baso # (Auto) 0.03 (0.00-0.10) K/mm3 Abs Immat Gran (auto) 0.03 H (0.00-0.00) K/mm3 Absolute Neuts (auto) 6.08 (1.70-7.20) K/mm3 Absolute Nucleated RBC 0.00 (0.00-0.00) K/mm3 Nucleated RBC % 0.0 (0-0.0) % Sodium 140 (136-145) mmol/L Potassium 3.3 L (3.5-5.1) mmol/L Chloride 102 (98-108) mmol/L Carbon Dioxide 24 (21-32) mmol/L Anion Gap 14 H (4-12) mmol/L BUN 14 (7-18) mg/dL Creatinine 0.99 (0.70-1.30) mg/dL Estim Creat Clear Calc 103 ml/min Estimated GFR > 60 (59 - ) Glucose 90 (70-99) mg/dL Calculated Osmolality 290 (285-295) mOsm/kg Calcium 9.3 (8.5-10.1) mg/dL Magnesium 1.9 (1.8-2.4) mg/dL Total Bilirubin 0.7 (0.00-1.00) mg/dL AST 31 (15-37) U/L ALT 37 (16-63) U/L Alkaline Phosphatase 85 (46-116) U/L Troponin I 4.2 (0.00-60.4) ng/L Total Protein 6.9 (6.4-8.2) g/dL Albumin 3.9 (3.4-5.0) g/dL TSH 2.75 (0.36-3.74) uIU/mL Urine Opiates Screen Negative (Negative) Urine Methadone Screen Negative (Negative) Ur Barbiturates Screen Negative (Negative) Ur Phencyclidine Scrn Negative (Negative) Ur Amphetamine Screen Negative (Negative) U Benzodiazepines Scrn Negative (Negative) Urine Cocaine Screen Negative (Negative) U Cannabinoids Screen Negative (Negative) Discharge Plan Discharge Clinical Impression: Anxiety disorder due to general medical condition with panic attack Patient Disposition: Home, Self-Care Condition: Stable Instructions: Anxiety (ED) Patient Language: Slovenian Prescriptions: No Action cyclobenzaprine 5 mg tablet 5 mg PO TID PRN (Reason: Muscle Spasm) pantoprazole 40 mg tablet,delayed release (DR/EC) 40 mg PO QAM atorvastatin 10 mg tablet 10 mg PO HS famotidine 40 mg Tablet 40 mg PO BID trazodone 100 mg tablet 100 mg PO HS PRN (Reason: Insomnia) Patient Comments: Pt stated he has not taken for months ferrous sulfate 325 mg (65 mg iron) Tablet 325 mg PO 4XW Centrum 18-400 mg-mcg Tablet 1 tablet PO DAILY acetaminophen 500 mg Capsule 1,000 mg PO Q6H PRN (Reason: Pain) aspirin [Enteric Coated Aspirin] 81 mg tablet,delayed release (DR/EC) 81 mg PO DAILY Qty: 28 0RF meloxicam 7.5 mg tablet 7.5 mg PO .twice daily Qty: 60 0RF hydrocodone-acetaminophen 5-325 mg tablet 1 - 2 tablet PO Q4-6H MDD 6 PRN (Reason: pain) Qty: 30 0RF Follow-up/Referrals: UNKNOWN,DOCTOR [Non-Staff] -
--- NOTE | 2024-11-16 22:21 | PC.NURSE ---
RETURNED FROM CT. LAB AT THE BEDSIDE
--- NOTE | 2024-11-16 22:26 | PC.NURSE ---
PLACED PATIENT ON FINANCIAL SERVICES INTERN. RADHA LANGSTON, AT THE BEDSIDE COMPLETING EKG
[2024-11-16 22:27] LABS: Basophils Absolute Auto 0.03 K/mm3 (0.00-0.10); Basophils Percent Auto 0.3 % (0.0-1.0); Eosinophils Absolute Auto 0.04 K/mm3 (0.02-0.50); Eosinophils Percent Auto 0.4 % (1.0-6.0); Hemoglobin 15.4 g/dL (14.0-18.0); Immature Granulocyte Absolute 0.03 K/mm3 (0.00-0.00); Immature Granulocyte Percent A 0.3 % (0.0-0.0); Lymphocytes Absolute Auto 1.93 K/mm3 (1.10-4.50); Lymphocytes Percent Auto 21.6 % (18.0-42.0); Mean Corpuscular HGB Conc 34.2 g/dL (32-36); Mean Corpuscular Hemoglobin 32.6 pg (27.0-31.0); Mean Corpuscular Volume 95.1 fL (78.0-102.0); Mean Platelet Volume 8.5 fl (8.7-11.0); Monocytes Absolute Auto 0.82 K/mm3 (0.10-0.90); Monocytes Percent Auto 9.2 % (2.0-11.0); Neutrophils Absolute Auto 6.08 K/mm3 (1.70-7.20); Neutrophils Percent Auto 68.2 % (50.0-70.0); Platelet Count Result 210 K/mm3 (150-420); Red Blood Count 4.73 M/mm3 (4.70-6.10); Red Cell Distribution Width 11.5 % (11.6-14.4); White Blood Count 8.9 K/mm3 (4.8-10.8)
[2024-11-16 22:28] VITALS: BP 127/98; PULSE 93; RESP 20; O2SAT 98
[2024-11-16 22:31] VITALS: BP 122/95; PULSE 91; RESP 16; O2SAT 97
--- NOTE | 2024-11-16 22:45 | PC.NURSE ---
PATIENT WAS GIVEN URINAL.
[2024-11-16 22:46] VITALS: BP 143/102; PULSE 102; RESP 25; O2SAT 94
--- NOTE | 2024-11-16 22:49 | PC.NURSE ---
URINE GIVEN TO LAB
[2024-11-16 22:52] LABS: Alanine Aminotransferase 37 U/L (16-63); Albumin Level 3.9 g/dL (3.4-5.0); Alkaline Phosphatase 85 U/L (46-116); Anion Gap 14 mmol/L (4-12); Aspartate Amino Transferase 31 U/L (15-37); Bilirubin,Total 0.7 mg/dL (0.00-1.00); Blood Urea Nitrogen 14 mg/dL (7-18); Calcium 9.3 mg/dL (8.5-10.1); Carbon Dioxide 24 mmol/L (21-32); Chloride 102 mmol/L (98-108); Estimated CRCL calculation 103 ml/min; Estimated Glomerular Filt Rate > 60; Glucose 90 mg/dL (70-99); Magnesium 1.9 mg/dL (1.8-2.4); Osmolality Calculated 290 mOsm/kg (285-295); Potassium 3.3 mmol/L (3.5-5.1); Sodium 140 mmol/L (136-145); Thyroid Stimulating Hormone 2.75 uIU/mL (0.36-3.74); Total Protein 6.9 g/dL (6.4-8.2); Troponin I 4.2 ng/L (0.00-60.4)
[2024-11-16 23:08] LABS: Amphetamine Screen Urine Negative (Negative); Barbiturate Screen Urine Negative (Negative); Benzodiazepines Screen Urine Negative (Negative); Cannabinoid Screen Urine Negative (Negative); Cocaine Screen Urine Negative (Negative); Methadone Screen Urine Negative (Negative); Opiate Screen Urine Negative (Negative); Phencyclidine Screen Urine Negative (Negative)
[2024-11-16] MEDS: LORazepam INJ (*CRX) 2 MG/ML VIAL 1 MG IV PUSH (23:15)
[2024-11-16] MEDS: POTASSIUM CHLORIDE 20 MEQ PACKET (FOR LIQUID) PO (23:15)
--- NOTE | 2024-11-16 23:19 | PC.NURSE ---
PATIENT REPORTS THAT HIS IS ON THE WAY TO [facility].
--- NOTE | 2024-11-16 23:26 | PC.NURSE ---
PATIENTS IS AT THE BEDSIDE
[2024-11-16 23:42] VITALS: BP 137/99; PULSE 95; RESP 18; TEMP 36.6; O2SAT 95
== END 2024-11-16 23:47 | disposition home or self-care (01) ==
PROVIDERS: Emergency Provider Family Medicine
DX: F41.0 Panic disorder [episodic paroxysmal anxiety] (principal); I10 Essential (primary) hypertension; E11.9 Type 2 diabetes mellitus without complications; E78.5 Hyperlipidemia, unspecified; J45.909 Unspecified asthma, uncomplicated; G47.33 Obstructive sleep apnea (adult) (pediatric); F41.9 Anxiety disorder, unspecified; F32.A Depression, unspecified; Z98.84 Bariatric surgery status; Z87.891 Personal history of nicotine dependence; Z79.899 Other long term (current) drug therapy
CPT/HCPCS: 36415; 70450; 80053; 80307; 83735; 84443; 84484; 85025; 93005; 96374; 99284; A9270; J2060

== ENCOUNTER 2025-08-12 11:26 | Emergency (ER) | payer BC, SELFPAY ==
--- OUTSIDE RECORDS SUMMARY | 2024-01-19 04:00 | XMS_ITS | Continuity of Care Document ---
Author Organization [facility] Address [address] [place] [address] Phone Care Team Providers Care Rn Bariatric Name Role Phone Mandy Barrett OT Unavailable Unavailable Procedures Procedure Date Therapeutic Activities Neuromuscular Re-Ed Therapeutic Activities Neuromuscular Re-Ed Therapeutic Activities Neuromuscular Re-Ed Hot or Cold Pack Therapeutic Activities Neuromuscular Re-Ed Hot or Cold Pack Therapeutic Activities Neuromuscular Re-Ed Hot or Cold Pack Identified as not an unhealthy alcohol u ser Not identified as unhealthy alcohol via screening OT Evaluation Moderate Complexity Neuromuscular Re-Ed Therapeutic Activities Orthotic Mgmt and Training Push MetaGrip Advance Directives Directive Yes / No Effective Date File Name No Information Encounters Encounter Description Practice Location Reason(s) For Visit Diagnoses Date Provider Providers Copied on Encounter [facility], [address], [place], [place], [id number], tel:[phone] [place] No Information Nena Galvan. . Referring Provider: Francisco Ortega, [address], [place], [address]. tel:[phone], [id number], tel:[phone] [place] No Information Nena Galvan. . Referring Provider: Francisco Ortega, [address] [place] [address], [facility]. tel:[phone], [id number], tel:[phone] [place] No Information Barrettkye Galvan. . Referring Provider: Francisco Ortega, [address] [place] [address], [place], [place], [facility]. tel:[phone], [id number], tel:[phone] [place] No Information Nena Galvan. . Referring Provider: Francisco Ortega, [address] [place] [address], [facility]. tel:[phone], [id number], tel:[phone] [place] No Information Nena Galvan. . Referring Provider: Francisco Ortega, [address] [place] [address], [facility]. tel:[phone], [id number], tel:[phone] [place] No Information Nena Galvan. . Referring Provider: Francisco Ortega [address] [place] [address], [facility]. tel:[phone] Family History Family Member Type Diagnosis Age At Onset No Information Payers Payer name Insurance type Covered democrat ID Lorne mays(s) [facility] [id number] Social History Type Description Quantity Date Captured Comments Sex Male Smoking Status No Information Chief Complaint And Reason For Visit No Information Reason For Referral Reason For Referral No Information Plan Of Treatment Date Type Action Status Goal Tobacco cessation counseling completed Goal Tobacco Cessation Counseling completed History Of Present Illness Encounter Date Complaint History Of Prese nt Illness No Information Functional Status Date Functional Assessmen t No Information Instructions Date Instruction Additional Infor mation No Information Assessments Type Assessment Date No Information Patient Care Teams Name Effective Dates (start - stop) Status Members No Information
[2025-08-12] VITALS (13 sets, daily range): BP systolic 101–137; BP diastolic 74–92; PULSE 79–91; RESP 18; TEMP 36.7; O2SAT 92–95
--- NOTE | ~2025-08-12 | XR_ITS ---
Examination: XR chest 1V portable Clinical History: onset this AM, retrosternal burning sensation/ hematemesis Comparison: None Technique: Portable AP Findings: Heart size normal. Lungs clear. No acute bony abnormality. IMPRESSION: 1. No acute cardiopulmonary findings given portable technique. Reviewed, dictated and finalized at location R.
--- NOTE | 2025-08-12 11:41 | ED.NAVMDI ---
HPI - Nausea/Vomiting/Diarrhea General Chief complaint: Nausea/Vomiting/Diarrhea Stated complaint: vomiting Time Seen by Provider: 08/12/25 11:33 Source: patient Mode of arrival: ambulatory Limitations: no limitations History of Present Illness HPI Narrative: 50 years old white male complaining of vomiting couple specks of dark blood 1 week ago, runny stool 2-3 episodes a day for the last 5 days, vomiting frothy bright red blood once this morning prior to our. Currently complaining of burning sensation in the throat and retrosternal. History of gastric sleeve, GERD, hypertension, hyperlipidemia. Patient smokes cigarettes, drink alcohol daily, denies any drug use. Patient currently on [id number] omeprazole and Pepcid. Related Data Home Medications ?Medication ?Instructions ?Recorded ?Confirmed ?Last Taken ?Type atorvastatin 10 mg tablet 10 mg PO HS 03/08/23 06/19/24 07/19/23 History cyclobenzaprine 5 mg tablet 5 mg PO TID PRN Muscle Spasm 03/08/23 06/19/24 07/19/23 History pantoprazole 40 mg tablet,delayed 40 mg PO QAM 03/08/23 06/19/24 07/19/23 History release acetaminophen 500 mg capsule 1,000 mg PO Q6H PRN Pain 05/24/23 06/19/24 07/19/23 History famotidine 40 mg tablet 40 mg PO BID 05/24/23 06/19/24 07/25/23 09:00 History ferrous sulfate 325 mg (65 mg 325 mg PO 4XW 05/24/23 06/19/24 07/19/23 History iron) tablet multivitamin-ferrous 1 tablet PO DAILY 05/24/23 06/19/24 07/19/23 History fumarate-folic acid 18 mg-400 mcg tablet (Centrum) trazodone 100 mg tablet 100 mg PO HS PRN Insomnia 05/24/23 06/19/24 06/15/23 History Allergies Allergy/AdvReac Type Severity Reaction Status Date / Time No Known Allergies Allergy Verified 08/12/25 11:29 Review of Systems Review of Systems: All systems reviewed & are unremarkable except as noted in HPI and below PMFSH Past Medical History Medical History Depression Anxiety Hiatal hernia Asthma Hypertension Hyperlipidemia ALLIE (obstructive sleep apnea) Diabetes Current smoker History of stress test Surgical History Surgical History Status post decompression of ulnar nerve at elbow History of carpal tunnel surgery of right wrist (~07/26/23) History of cubital tunnel surgery of right wrist Status post total hip replacement, right (~06/21/23) H/O gastric sleeve (~2015) History of medial meniscus repair of right knee (~2005) Family History Family History Unknown Cancer Social History Social History Smoking packs per day: 2 Smoking cigarettes per day: 40.0 Years smoked: 6 Smoking pack-years: 12.00 Smoking status: Former smoker Tobacco type: cigarettes Smoking end date: 05/13/23 Additional smoking assessment comments: USING NICOTINE-FREE VAPING CURRENTLY Alcohol intake: former Alcohol use details: HEAVY DRINKER Substance use: never Substance use type: does not use Lack of Transportation: No Lack of Food: Never True Current Housing: I Have Housing Concerned About Future Housing: No Difficulty Paying Gas/Electric Bills: No Difficulty Paying for Meds: No Currently Unemployed: No Education: High School Diploma/GED Difficulty w/ Childcare or Family Care: No Living arrangements: with family Additional living arrangements comments: & [place] Spiritual care concerns: No Exam Narrative: General appearance: Well-developed, well-nourished Skin: Normal color Head: Normocephalic, nontraumatic Eyes: Clear conjunctiva ENT: Oropharynx normal, ears normal, nose normal Neck: Supple, nontender Chest and respiratory: Airway patent, no respiratory distress, no accessory muscle use Heart: Regular rate/rhythm Abdomen: Soft, nontender, no organomegaly, quiet bowel sounds. Rectal exam showed no gross bleeding, brownish stool, no hemorrhoids no localized tenderness Vascular: Normal peripheral pulses, normal capillary refill. Musculoskeletal: Normal range of motion, nontender back Neurologic: Alert and oriented ?3, DIESEL SERVICE TECHNICIAN is normal as tested, no gross motor deficit Course Vital Signs Vital signs: Vital Signs Temperature 36.7 C 08/12/25 11:27 Pulse Rate 91 08/12/25 11:27 Respiratory Rate 18 08/12/25 11:27 Blood Pressure 137/92 H 08/12/25 11:27 Pulse Oximetry 95 08/12/25 11:27 Oxygen Delivery Room Air 08/12/25 11:27 Temperature 36.7 C 08/12/25 11:27 Pulse Rate 91 08/12/25 11:27 Respiratory Rate 18 08/12/25 11:27 Blood Pressure 137/92 H 08/12/25 11:27 Pulse Oximetry 95 08/12/25 11:27 Oxygen Delivery Room Air 08/12/25 11:27 MDM - Nausea/Vomiting/Diarrhea MDM Narrative Medical decision making narrative: patient came with vomiting blood Vital signs are stable Physical examination showing patient holding vomiting bag in hand with retrosternal and pharyngeal burning sensation Differential diagnosis include gastritis, esophagitis, peptic ulcer disease, esophageal varices, GI bleed Blood workup today includes CBC, CMP, lipase, PT showed hemoglobin 14.8, hematocrit 42.4, otherwise within normal limit Chest x-ray showed no acute abnormalities, stool occult blood negative. Patient's symptom resolved immediately after GI cocktail. Patient currently smoking cigarettes, drinking alcohol daily and on meloxicam which are risk factor for GI bleed. patient was advised to quit smoking and drinking. A new prescription of Protonix 40 mg twice a day instead of once a day. And continue home medication. The pt was discharged to home.the pt,s condition upon discharge was fair,education was provided to the pt in reference to the final impression,discharge study results,treatment,prognosis and need for follow up . Differential Diagnosis Differential diagnosis: Likely other ( as above) Medical Records Attestation: I reviewed the patient's medical records. Lab Data Attestation: I reviewed the patient's lab results. 08/12/25 11:50 08/12/25 11:50 Labs: Lab Results 08/12/25 08/12/25 Range/Units 11:50 12:57 WBC 6.6 (4.8-10.8) K/mm3 RBC 4.57 L (4.70-6.10) M/mm3 Hgb 14.8 (14.0-18.0) g/dL Hct 44.4 (40.0-54.0) % MCV 97.2 (78.0-102.0) fL MCH 32.4 H (27.0-31.0) pg MCHC 33.3 (32-36) g/dL RDW 11.7 (11.6-14.4) % Plt Count 232 (150-420) K/mm3 MPV 8.8 (8.7-11.0) fl Immature Gran % (Auto) 0.3 H (0.0-0.0) % Neut % (Auto) 64.4 (50.0-70.0) % Lymph % (Auto) 25.2 (18.0-42.0) % [place] % (Auto) 8.6 (2.0-11.0) % Eos % (Auto) 1.2 (1.0-6.0) % Baso % (Auto) 0.3 (0.0-1.0) % Lymph # (Auto) 1.66 (1.10-4.50) K/mm3 [place] # (Auto) 0.57 (0.10-0.90) K/mm3 Eos # (Auto) 0.08 (0.02-0.50) K/mm3 Baso # (Auto) 0.02 (0.00-0.10) K/mm3 Abs Immat Gran (auto) 0.02 H (0.00-0.00) K/mm3 Absolute Neuts (auto) 4.25 (1.70-7.20) K/mm3 Absolute Nucleated RBC 0.00 (0.00-0.00) K/mm3 Nucleated RBC % 0.0 (0-0.0) % PT 10.4 (9.50-12.1) Seconds INR 0.9 APTT 25.3 (23.9-30.70) Sec Sodium 143 (137-145) mmol/L Potassium 4.3 (3.4-5.0) mmol/L Chloride 108 H (98-107) mmol/L Carbon Dioxide 22 (22-30) mmol/L Anion Gap 13 H (4-12) mmol/L BUN 13 D (9-20) mg/dL Creatinine 0.73 (0.7-1.3) mg/dL Estim Creat Clear Calc 139 ml/min Estimated GFR > 60 (59 - ) Glucose 86 (65-110) mg/dL Calculated Osmolality 295 (285-295) mOsm/kg Calcium 9.2 (8.4-10.2) mg/dL Total Bilirubin 0.7 (0.2-1.3) mg/dL AST 35 (17-59) U/L ALT 18 (6-50) U/L Alkaline Phosphatase 81 (38-126) U/L Total Protein 8.3 H (6.3-8.2) g/dL Albumin 4.6 (3.5-5.1) g/dL Lipase 67 (23-300) U/L Stool Occult Blood Negative (Negative) Critical Care Time Critical Care Time Critical Care Time: No Discharge Plan Discharge Clinical Impression: Vomiting, Heartburn symptom Patient Disposition: Home Condition: Improved Instructions: GERD (Gastroesophageal Reflux Disease) (DC), Acute Nausea and Vomiting (ED) Additional Instructions: Return if symptoms are worsening , call your family physician for appointment, take Tylenol as as needed for aches and pain, continue home medications. Try to stop alcohol, and cigarette smoking. Patient Language: Georgian Prescriptions: New pantoprazole [Protonix] 40 mg tablet,delayed release (DR/EC) 40 mg PO BID 28 Days Qty: 60 0RF ondansetron 4 mg tablet,disintegrating 4 mg PO Q4H PRN (Reason: nausea and vomiting) 3 Days Qty: 10 0RF No Action cyclobenzaprine 5 mg tablet 5 mg PO TID PRN (Reason: Muscle Spasm) pantoprazole 40 mg tablet,delayed release (DR/EC) 40 mg PO QAM atorvastatin 10 mg tablet 10 mg PO HS famotidine 40 mg Tablet 40 mg PO BID trazodone 100 mg tablet 100 mg PO HS PRN (Reason: Insomnia) Patient Comments: Pt stated he has not taken for months ferrous sulfate 325 mg (65 mg iron) Tablet 325 mg PO 4XW Centrum 18-400 mg-mcg Tablet 1 tablet PO DAILY acetaminophen 500 mg Capsule 1,000 mg PO Q6H PRN (Reason: Pain) aspirin [Enteric Coated Aspirin] 81 mg tablet,delayed release (DR/EC) 81 mg PO DAILY Qty: 28 0RF meloxicam 7.5 mg tablet 7.5 mg PO .twice daily Qty: 60 0RF hydrocodone-acetaminophen 5-325 mg tablet 1 - 2 tablet PO Q4-6H MDD 6 PRN (Reason: pain) Qty: 30 0RF Follow-up/Referrals: Elton Adhikari MD [Physician, Gastroenterology] - 08/16/25 UNKNOWN,DOCTOR [Primary Care Provider] Stand Alone Forms: Work/School Release IP
[2025-08-12 11:54] LABS: Hematocrit 44.4 % (40.0-54.0); Hemoglobin 14.8 g/dL (14.0-18.0); Immature Granulocyte Percent A 0.3 % (0.0-0.0); Lymphocytes Absolute Auto 1.66 K/mm3 (1.10-4.50); Mean Corpuscular HGB Conc 33.3 g/dL (32-36); Mean Corpuscular Hemoglobin 32.4 pg (27.0-31.0); Mean Corpuscular Volume 97.2 fL (78.0-102.0); Nucleated Red Blood Cells Absolute Auto 0.00 K/mm3 (0.00-0.00); Nucleated Red Blood Cells Perc 0.0 % (0-0.0); Platelet Count Result 232 K/mm3 (150-420); Red Blood Count 4.57 M/mm3 (4.70-6.10); White Blood Count 6.6 K/mm3 (4.8-10.8)
[2025-08-12 12:07] LABS: Alanine Aminotransferase 18 U/L (6-50); Albumin Level 4.6 g/dL (3.5-5.1); Alkaline Phosphatase 81 U/L (38-126); Anion Gap 13 mmol/L (4-12); Aspartate Amino Transferase 35 U/L (17-59); Bilirubin,Total 0.7 mg/dL (0.2-1.3); Blood Urea Nitrogen 13 mg/dL (9-20); Calcium 9.2 mg/dL (8.4-10.2); Carbon Dioxide 22 mmol/L (22-30); Chloride 108 mmol/L (98-107); Estimated CRCL calculation 139 ml/min; Estimated Glomerular Filt Rate > 60; Glucose 86 mg/dL (65-110); Lipase 67 U/L (23-300); Osmolality Calculated 295 mOsm/kg (285-295); Potassium 4.3 mmol/L (3.4-5.0); Sodium 143 mmol/L (137-145); Total Protein 8.3 g/dL (6.3-8.2)
[2025-08-12] MEDS: SODIUM CHLORIDE 0.9% IV 1,000 ML 999 ML IV CONT (12:08)
[2025-08-12 12:09] LABS: INR 0.9; Partial Thromboplastin Time 25.3 Sec (23.9-30.70); Prothrombin Time 10.4 Seconds (9.50-12.1)
[2025-08-12] MEDS: MAG HYDROX/ALUMINUM HYD/SIMETH 30 ML, PHENobarb/HYOSCY/ATROPINE/SCOP 32.4 MG, LIDOCAINE... PO (12:09)
[2025-08-12] MEDS: ONDANSETRON INJ 4 MG/2 ML VIAL IV PUSH (12:09)
--- OUTSIDE RECORDS SUMMARY | 2025-08-12 12:26 | XMS_ITS | Patient Health Record ---
Author Organization [facility] Address [address] [place] [address] Care Team Providers Care Community Pharmacist Name Role Phone Emir Ortega Primary Care Provider Allergies No Known Allergies Reason For Referral No Information Medications Medication SIG (Take, Route, Frequency, Duration) Notes Start Date End Date Status Citalopram Hydrobromide 20 MG 1 tablet Orally Once a day Active buPROPion HCl ER (SR) 200 MG 1 tablet in the morning Orally twice a day Active Multivitamin - 1 tablet Orally Once a day Active traZODone HCl 50 MG 1 tablet at bedtime as needed Orally Once a day 06/01/2022 Active Famotidine 10 MG 1 tablet as needed O rally Twice a day Active Cyclobenzaprine HCl 5 MG 1 tablet at bed time as needed Orally Once a day Active Atorvastatin Calcium 10 MG 1 tablet Oral ly Once a day Active busPIRone HCl 15 MG 1 tablet twice a day Active Garlic Oil 1500 3 MG as directed Orally Active Vivitrol 380 MG 380 MG Intramuscular EVERY 4 WEEKS 05/04/2022 Active B Complex (Folic Acid) - as directed Orally Active Naltrexone HCl 50 MG 1 tablet as needed for alcohol craving Orally Once a day 05/28/2022 Active Pantoprazole Sodium 40 MG 1 tablet Orall y Once a day Active Social History Tobacco Use: Social History Observation Description Date Details (start date - stop date) Current Smoker NA - NA Sex Assigned At : Social History Observation Description Sex Assigned At Male Dont use, Tobacco Use/Smoking Question Answer Notes Are you a current smoker How often do you smoke cigarettes? every day How many cigarettes a day do you smoke? 5 or les s Problems Problem Type SNOMED Code ICD Code Onset Dates Problem Status W/U Status Risk Notes Problem Morbid obesity (disorder) (924658243) Morbid (severe) obesity due to excess calories (E66.01) Active confirmed Problem Tobacco user (771350616) Nicotine dependence, unspecified, uncomplicated (F17.200) Active confirmed Problem Mixed anxiety and depressive disorder (862461449) Depression with anxiety (F41.8) Active confirmed Problem Alcohol use disorder (8358269271) Alcohol use disorder (F10.99) Active confirmed Problem Hyperlipidaemia (75050163) Hyperlipidemia, unspecified hyperlipidemia type (E78.5) Active confirmed Problem Kidney stone (89725711) Kidney stones (N20.0) Active confirmed Problem History of bariatric surgical procedure (462936045) Hx of laparoscopic gastric banding (Z98.84) Active confirmed Problem Body mass index 40+ - severely obese (645387016) Body mass index [BMI]40.0-44.9, adult (Z68.41) Active confirmed Problem Gastroesophageal reflux disease (263486293) Gastroesophageal reflux disease, unspecified whether esophagitis present (K21.9) Active confirmed Problem Essential hypertension (19903575) White coat syndrome with hypertension (I10) Active confirmed Plan Of Treatment No Information Insurance Providers Payer Name Payer Address Payer Phone Subscriber Number Group Number Insured Name Patient Relationship to Insured Coverage Start Date Coverage End Date [employer] [address] [place] [address] [id number] JermaineJuan Self - patient is the insured 2 Medications Administered Medication Instructions Date of Administration Dosage Notes Vivitrol 05/04/2022 380 mg Pt tolerated i njection well. Voiced no questions or concerns. Vivitrol 06/01/2022 380 mg Pt tolerated i njection well. Pt voiced no questions or concerns. Vivitrol 07/01/2022 380 mg Pt tolerated i njection well. Pt voiced no questions or concerns. Medical (General) History Surgical History Surgery Date(Month/Year) gastric bypass 2015 COLONOSCOPY WITH POLPYPECTOMY 2019 Left ureteral stent and lithotripsy for kidney stone 06/2022 Hospitalization History Reason Date(Month/Year)
--- OUTSIDE RECORDS SUMMARY | 2025-08-12 12:26 | XMS_ITS | Encounter Summary ---
Author Organization [facility] Address [address] [place] [address] Phone Care Team Providers Care Venetian Blind Installer Name Role Phone Provider, Not On File Primary Care Provider Unav ailable Anil Santiago MD Unavailable [phone] Yulisa Andino APRN, PHARMACEUTICAL SALES Unavailable Provider, Not On File Primary Care Provider Unav ailable Gerard Davis MD Unavailable Theo Shrestha COMPRESS ENGINEER, PHARMACEUTICAL SALES Unavailable Reason for Visit * Reason Comments Medication Refill Encounter Details Date Type Department Care Team (Late st Contact Info) Description 06/24/2023 Refill [facility] [address] [place] [phone] Anil Santiago MD [facility], [address] [address] Medication Refill Social History Tobacco Use Types Packs/Day Years Used Date Smoking Tobacco: Heavy Smoker Cigarettes Smokeless Tobacco: Never Alcohol Use Standard Drinks/Week Comments Yes 0 (1 standard drink = 0.6 oz pur e alcohol) drinks 6-8 beers every night Sexually Active Control Partners Comments Not Currently Sex and Gender Information Value Date Recorded Sex Assigned at Not on file Legal Sex Male 12:20 AM CDT Gender Identity Not on file Sexual Orientation Not on file documented as of this encounter Miscellaneous Notes * Telephone Encounter - Nissa Garcia RN - 06/25/2023 9:51 AM CDT Per nursing clinical judgement, provider to review and approve the medication(s) order(s) if appropriate. Requested Prescriptions Pending Prescriptions Disp Refills tamsulosin (FLOMAX) 0.4 MG Capsule [Pharmacy Med Name: Tamsulosin HCl 0.4 MG Oral Capsule] 30 Capsule 0 Sig: Take 1 capsule by mouth once daily Benign Prostatic Hyperplasia Medications Protocol Passed - 06/24/2023 11:46 AM Passed - Visit with relevant provider in past 12 months or upcoming 90 days Recent Visits Date Type Provider Dept 01/08/23 Office Visit Anil Santiago MD [facility] 09/25/22 Office Visit Anil Santiago MD [facility] 08/14/22 Office Visit Anil Santiago MD [facility] Showing recent visits within past 365 days and meeting all other requirements Future Appointments No visits were found meeting these conditions. Showing future appointments within next 90 days and meeting all other requirements documented in this encounter Plan of Treatment Upcoming Encounters Date Type Department Care Team (Late st Contact Info) Description 11/13/2025 10:45 AM BOOKKEEPER Office [facility] [address] [place] [phone] Theo Shrestha, COMPRESS ENGINEER, PHARMACEUTICAL SALES [address] [place] [address] documented as of this encounter Visit Diagnoses Not on filedocumented in this encounter Care Teams Venetian Blind Installer Relationship Specialty Start Date End Date Provider, Not On File [place] PCP - General 05/27/20 02/05/24 Provider, Not On File [place] PCP - General 02/06/24 Anil Santiago MD [address] [address] Consulting Physician Urology 08/12/22 Yulisa Andino APRN, PHARMACEUTICAL SALES [address] [place] [address] Nurse Practitioner Advanced Practice Nurse 11/02/23 Gerard Davis MD [address] [place] [address] Consulting Physician Gastroenterology 12/13/23 02/01/25 Theo Shrestha APRN, PHARMACEUTICAL SALES [address] [place] [address] Nurse Practitioner Advanced Practice Nurse 04/11/25 documented as of this encounter
--- OUTSIDE RECORDS SUMMARY | 2025-08-12 12:26 | XMS_ITS | Clinical Summary ---
Author Organization [facility] Address [address] [place] [address] Phone Care Team Providers Care Director Child Name Role Phone Anil Santiago MD Unavailable [phone] Yulisa Andino APRN, NANOTECHNOLOGY ENGINEERING TECHNOLOGIST Unavailable Provider, Not On File Primary Care Provider Unav ailable Theo Shrestha APRN, NANOTECHNOLOGY ENGINEERING TECHNOLOGIST Unavailable [phone] Allergies No known active allergies Medications citalopram (CELEXA) 20 MG Tablet Take 60 mg by mouth nightly. Active busPIRone (BUSPAR) 15 MG Tablet Take 15 mg by mouth 2 times daily. Active pantoprazole (PROTONIX) 40 MG Tablet Delayed Response Take 1 Tab by mouth daily. 30 Tab 0 Active famotidine (PEPCID) 20 MG Tablet Take 1 Tab by mouth 2 times daily as needed for Heartburn. 60 Tab 0 Active ketorolac (TORADOL) 10 MG Tablet Take 1 Tablet by mouth every 6 hours as needed for Mild or more severe pain or Moderate or more severe pain. 30 Tablet 2 Active Additional Information Patient not taking.Reported on 04/16/2025 atorvastatin (LIPITOR) 10 MG Tablet TAKE 1 TABLET BY MOUTH AT BEDTIME 3 Active cyclobenzaprine (FLEXERIL) 5 MG Tablet as needed. 3 Active mupirocin (BACTROBAN) 2 % Ointment Apply as needed. 3 Active sucralfate (CARAFATE) 1 GM TabletIndicatio ns:Epigastric pain TAKE 1 TABLET BY MOUTH THREE TIMES DAILY 120 Tablet 4 Active Multiple Vitamin (MULTI-VITAMIN PO) Take by mouth daily. Active Multiple Vitamins-Minera ls (HAIR SKIN AND NAILS FORMULA PO) Take by mouth daily. 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 Resolved Problems Problem Noted Date Diagnosed Date Resolved Date Ureteral colic 08/04/2022 08/04/2022 Encounters Date Type Department Care Team Description 07/08/2025 Refill [facility] [address] [place] [address] Anil Santiago MD Medication Refill from Last 3 Months Immunizations Immunization Administration Dates Next Due Influenza Vaccine, Quadrivalent, PF 06/2024,10/06/2021,09/11/2019,09/12 Influenza, Recombinant, Quadrivalent,injectable, Pf 11/01/2022 Pneumococcal Vaccine Adult - 23 Valent 8 Pneumococcal conjugate PCV20 , polysaccharide ZCL005 conjugate, adjuvant, PF 03/15/2023 TDAP Vaccine 03/11/2023,10/25/2017 Td, Unspecified Formulation 03/11/2023 Family History Medical History Relation Name Comments Cancer Father Brain Chronic Obstructive Pulmonary Disease Father Diabetes Father Heart Disease Father High Cholesterol Father Hypertension Father Kidney Disease Father Osteoporosis Mother Relation Name Status Comments Father Mother Alive Social History Tobacco Use Types Packs/Day Years Used Date Smoking Tobacco: Heavy Smoker Cigarettes Smokeless Tobacco: Never Tobacco Cessation:Ready to Q uit: Not Asked; Counseling Given: Not Answered Alcohol Use Standard Drinks/Week Comments Not Currently 0 (1 standard drink = 0.6 oz pur e alcohol) drinks 6-8 beers every night Sexually Active Control Partners Comments Not Currently Sex and Gender Information Value Date Recorded Sex Assigned at Not on file Legal Sex Male 12:20 AM CDT Gender Identity Not on file Sexual Orientation Not on file Last Filed Vital Signs Vital Sign Reading Time Taken Comments Blood Pressure 106/75 04/16/2025 11:05 AM CDT Pulse 87 04/16/2025 11:05 AM CDT Temperature 36.1 C (96.9 F) 2024 10:00 AM CDT Respiratory Rate 15 2024 1:30 PM CDT Oxygen Saturation 97% 04/16/2025 11: 05 AM CDT Inhaled Oxygen Concentration - - Weight 132.5 kg (292 lb 3.2 oz) 025 11:05 AM CDT Height 175.3 cm (5' 9) 04/16/2025 11:0 5 AM CDT Body Mass Index 43.15 04/16/2025 11:05 AM CDT Plan of Treatment Upcoming Encounters Date Type Department Care Team (Late st Contact Info) Description 11/13/2025 10:45 AM DEPUTY CLERK OF SUPERIOR [address] Office Visit [facility] [address] [place] [address] Theo Shrestha, SNUBBER, NANOTECHNOLOGY ENGINEERING TECHNOLOGIST [address] [place] [address] Health Maintenance Due Date Last Done Comments Hepatitis B Immunization (1 of 3 - 19+ 3-dose series) 1993 Cologuard 2019 Immunochemical Fecal Occult Blood 2019 Zoster Immunization (1 of 2) 2024 Influenza Immunization (#1) 2025 01/0 06/2024, 11/01/2022, 10/06/2021, Additional history exists SARS-COV-2 Immunization ( - 2024- season) 2025 07/01/2021, 06/10/2021 Colonoscopy 12/13/2028 12/13/2023 Colorectal Cancer Screening 12/13/2028 Td Immunization Every 10 Years (Adults With 1 Tdap) 03/11/2033 03/11/2023, 03/11/2023, 10/25/2017 Respiratory Syncytial Virus (RSV) Immunization (Adult) (1 - 1-dose 75+ series) 2049 DTaP/Tdap/Td Immunization Discontinued 2022, 03/11/2023, 10/25/2017 Pneumococcal Immunization (50+ years) Completed 03/15/2023, 11/29/2017 Pneumococcal Immunization Combined Discontinued 03/15/2023, 11/29/2017 Hepatitis C Virus (HCV) Screening Completed 03/29/2023 Human Papillomavirus (HPV) Immunization Aged Out No longer eligible based on patient's age to complete this topic Meningococcal Immunization (ACWY) Aged Out No longer eligible based on patient's age to complete this topic Rotavirus Immunization Aged Out No lo nger eligible based on patient's age to complete this topic Medical Devices Implanted Type Area Community Relations Specialist Device Identifier Shelf Expiration Date Model / Serial / Lot Stent Ureteral 6fr 2.1fr 28cm 2 Pigtail Curve 2 Durometer Taper Tip Loprfl Graduated Polaris Ultra - [id number] Implanted:Qty : 1 on 08/04/2022 by Anil Santiago MD at [facility] IMPLANT Right: Ureter [employer] 03/06/2025 [id number] / [id number] / [id number] Description:STRINGS OFF Insurance Advance Directives Documents on File Type Date Recorded Patient Clean Rice Grader And Reel Tender Expl anation Other Advance Directive 08/14/2022 2:21 PM PROCEDURE CONSENT / URO Care Teams Director Child Relationship Specialty Start Date End Date Provider, Not On File [place] PCP - General 02/06/24 Anil Santiago MD #2 [facility], [address] [address] Consulting Physician Urology 08/12/22 Yulisa Andino APRN, NANOTECHNOLOGY ENGINEERING TECHNOLOGIST [address]2 [place] [address] Nurse Practitioner Advanced Practice Nurse 11/02/23 Theo Shrestha APRN, NANOTECHNOLOGY ENGINEERING TECHNOLOGIST [address] [place] [address] Nurse Practitioner Advanced Practice Nurse 04/11/25
--- OUTSIDE RECORDS SUMMARY | 2025-08-12 12:26 | XMS_ITS | Encounter Summary ---
Author Organization [facility] Address [address] [place] [address] Phone Care Team Providers Care Business Services Intern Name Role Phone Provider, Not On File Primary Care Provider Unav ailable Anil Santiago MD Unavailable [phone] Yulisa Andino APRN, PROPULSION MACHINERY SERVICE ENGINEER Unavailable Provider, Not On File Primary Care Provider Unav ailable Gerard Davis MD Unavailable Theo Shrestha SHRINKER, PROPULSION MACHINERY SERVICE ENGINEER Unavailable Reason for Visit * Reason Comments Medication Refill Encounter Details Date Type Department Care Team (Late st Contact Info) Description 05/03/2023 Refill [facility] [address] [place] [phone] Anil Santiago MD #2 [facility], [address] [address] Medication Refill Social History Tobacco Use Types [...] on file documented as of this encounter Plan of Treatment Upcoming Encounters Date Type Department Care Team (Late st Contact Info) Description 11/13/2025 10:45 AM HVAC SALES REPRESENTATIVE Office Visit [facility] [address] [place] [address] Theo Shrestha APRN, PROPULSION MACHINERY SERVICE ENGINEER [address] [place] [address] documented as of this encounter Visit Diagnoses Not on filedocumented in this encounter Care Teams Business Services Intern Relationship Specialty Start Date End Date Provider, Not On File [place] PCP - General 05/27/20 02/05/24 Provider, Not On File [place] PCP - General 02/06/24 Anil Santiago MD [address] [address] Consulting Physician Urology 08/12/22 Yulisa Andino APRN, PROPULSION MACHINERY SERVICE ENGINEER [address] [place] [address] Nurse Practitioner Advanced Practice Nurse 11/02/23 Gerard Davis MD [address] [place] [address] Consulting Physician Gastroenterology 12/13/23 02/01/25 Theo Shrestha APRN, PROPULSION MACHINERY SERVICE ENGINEER [address] [place] [address] Nurse Practitioner Advanced Practice Nurse 04/11/25 documented as of this encounter
--- OUTSIDE RECORDS SUMMARY | 2025-08-12 12:26 | XMS_ITS | Encounter Summary ---
Author Organization [facility] Address [address] [place] [address] Phone Care Team Providers Care Orthopedic Podiatrist Name Role Phone Provider, Not On File Primary Care Provider Unav ailable Anil Santiago MD Unavailable [phone] Yulisa Andino APRN, FULL STACK PHP DEVELOPER Unavailable Provider, Not On File Primary Care Provider Unav ailable Gerard Davis MD Unavailable Theo Shrestha PARTY PLAN SALES HOST/HOSTESS, FULL STACK PHP DEVELOPER Unavailable Reason for Visit * Reason Comments Medication Refill Encounter Details Date Type Department Care Team (Late st Contact Info) Description 05/27/2023 Refill [facility] [address] [place] [phone] Anil Santiago MD [facility], [address] [address] Medication Refill Social History Tobacco Use Types [...] encounter Miscellaneous Notes * Telephone Encounter - James Dee RN - 06/01/2023 3:40 PM CDT Patient of [facility]. Routing to [facility] briquette machine operator helper. documented in this encounter Plan of Treatment Upcoming Encounters Date Type Department Care Team (Late st Contact Info) Description 11/13/2025 10:45 AM BROACHING MACHINE OPERATOR Office Visit [facility] [address] [place] [address] Theo Shrestha APRN, FULL STACK PHP DEVELOPER [address] [place] [address] documented as of this encounter Visit Diagnoses Not on filedocumented in this encounter Care Teams Orthopedic Podiatrist Relationship Specialty Start Date End Date Provider, Not On File [place] PCP - General 05/27/20 02/05/24 Provider, Not On File [place] PCP - General 02/06/24 Anil Santiago MD #[address] [address] Consulting Physician Urology 08/12/22 Yulisa Andino APRN, FULL STACK PHP DEVELOPER [address] [place] [address] Nurse Practitioner Advanced Practice Nurse 11/02/23 Gearrd Davis MD [address] [place] [address] Consulting Physician Gastroenterology 12/13/23 02/01/25 Theo Shrestha APRN, FULL STACK PHP DEVELOPER [address] [place] [address] Nurse Practitioner Advanced Practice Nurse 04/11/25 documented as of this encounter
--- OUTSIDE RECORDS SUMMARY | 2025-08-12 12:26 | XMS_ITS | Encounter Summary ---
Author Organization [facility] Address [address] [place] [address] Phone Care Team Providers Care Digital Account Supervisor Name Role Phone Provider, Not On File Primary Care Provider Unav ailable Anil Santiago MD Unavailable [phone] Yulisa Andino APRN, RAND BUTTING MACHINE OPERATOR Unavailable Provider, Not On File Primary Care Provider Unav ailable eGrard Davis MD Unavailable Theo Shrestha HALL CLERK, RAND BUTTING MACHINE OPERATOR Unavailable Reason for Visit * Reason Comments Medication Refill Encounter Details Date Type Department Care Team (Late st Contact Info) Description 11/27/2023 Refill [facility] [address] [place] [address] Yulisa Andino APRN, RAND BUTTING MACHINE OPERATOR [address] [place] [address] Medication Refill Social History Tobacco Use Types [...] encounter Miscellaneous Notes * Telephone Encounter - Devi Faustin RN - 11/29/2023 9:21 AM JAVA PROGRAMMING PROFESSOR Medication refilled and signed per [facility] chronic medication standing order for pediatric and adult patients. PROGRAMMING PROFESSOR documented in this encounter Plan of Treatment Upcoming Encounters Date Type Department Care Team (Late st Contact Info) Description 11/13/2025 10:45 AM JAVA PROGRAMMING PROFESSOR Office Visit [facility] [address] [place] [address] Theo Shrestha APRN, RAND BUTTING MACHINE OPERATOR [address] [place] [address] documented as of this encounter Visit Diagnoses Diagnosis Epigastric pain Abdominal pain, epigastric documented in this encounter Care Teams Digital Account Supervisor Relationship Specialty Start Date End Date Provider, Not On File [place] PCP - General 05/27/20 02/05/24 Provider, Not On File [place] PCP - General 02/06/24 Anil Santiago MD [address] [address] Consulting Physician Urology 08/12/22 Yulisa Andino APRN, RAND BUTTING MACHINE OPERATOR [address] [place] [address] Nurse Practitioner Advanced Practice Nurse 11/02/23 Gerard Davis MD [address] [place] [address] Consulting Physician Gastroenterology 12/13/23 02/01/25 Theo Shrestha APRN, RAND BUTTING MACHINE OPERATOR [address] [place] [address] Nurse Practitioner Advanced Practice Nurse 04/11/25 documented as of this encounter
--- OUTSIDE RECORDS SUMMARY | 2025-08-12 12:26 | XMS_ITS | Clinical Summary ---
Author Organization [facility] Address [address] [place] [address] Care Team Providers Care Pre Sales Technical Engineer Name Role Phone Adela Llanos MD Primary Care Provider [phone] Mikey Delaney MD Unavailable [phone] Source Comments [facility],non-owned Affiliates and Associated Physician Practices is amultiple site organization consisting of ambulatory clinics and hospital sitesin [place], [place], [place] and [place]. This disclosure is being madepursuant to the Care Everywhere program and may not contain all information available regarding this patient. Last updated 18.[facility] Allergies No known active allergies Medications * Be aware that medications may not be up to date on this document. Alwaysverify current medications with the patient. colestipol (Colestid) 1 GM tablet Take 1 (one) tablet by mouth once daily 30 tablet 4 Active tamsulosin (Flomax) 0.4 MG capsule Take 1 (one) capsule by mouth once daily Active acetaminophen (Tylenol) 160 MG/5ML solution Take 31.25 mL by mouth every 8 hours 4 Active pantoprazole EC (Protonix) 40 MG tablet Take 1 (one) tablet by mouth 2 times daily 60 tablet 5 Active gabapentin (Neurontin) 300 MG capsuleIndicat ions:Chronic bilateral low back pain with bilateral sciatica Take 1 (one) capsule by mouth 3 times daily 270 capsule 3 5 Active buPROPion (Wellbutrin) 100 MG tabletIndicati ons:Nicotine Dependence Take 1 (one) tablet by mouth 2 times daily Reasons: Nicotine Addiction 180 tablet 3 5 Active atorvastatin (Lipitor) 10 MG tabletIndicati ons:Hyperlipid emia,Ischemic Heart Disease Take 1 (one) tablet by mouth at bedtime Reasons: High Amount of Fats in the Blood, Ischemic Heart Disease 90 tablet 3 5 Active busPIRone (Buspar) 15 MG tabletIndicati ons:Anxiety Disorder,Major Depressive Disorder Take 1 (one) tablet by mouth 2 times daily Reasons: Anxiety Disorder, Major Depressive Disorder 180 tablet 3 5 Active citalopram (CeleXA) 20 MG tabletIndicati ons:Generalize d Anxiety Disorder,Major Depressive Disorder Take 3 (three) tablets by mouth at bedtime Reasons: Generalized Anxiety Disorder, Major Depressive Disorder 270 tablet 3 5 Active cyclobenzaprin e (Flexeril) 10 MG tabletIndicati ons:Chronic bilateral low back pain with bilateral sciatica Take 1 (one) tablet by mouth 3 times daily as needed for Muscle Spasms 30 tablet 2 5 Active famotidine (Pepcid) 20 MG tabletIndicati ons:Heartburn Take 1 (one) tablet by mouth at bedtime Reasons: Heartburn 90 tablet 4 5 Active hydrocortisone , rectal, (Anusol-HC) 2.5 % cream Insert into the rectum at bedtime 28 g 1 5 Active hydroCHLOROthi azide (Hydrodiuril) 25 MG tablet Take 1 (one) tablet by mouth once daily 30 tablet 4 5 Active hydroCHLOROthi azide (Hydrodiuril) 25 MG tablet Take 1 (one) tablet by mouth once daily 30 tablet 4 5 07/17/20 25 Discontin ued(Reord er) Active Problems Problem Noted Date Diagnosed Date Rectal bleeding 03/05/2025 Gastroesophageal reflux disease without esophagi tis 10/09/2024 Cervicalgia 05/31/2024 Ascending aortic aneurysm 04/05/2024 Gastroesophageal reflux dise ase with esophagitis without hemorrhage 03/09/2024 Dysphagia 03/09/2024 H/O gastric sleeve 03/09/2024 Cervical spinal stenosis 03/08/2024 Spondylosis of lumbar region without myelopathy or radiculopathy 11/25/2023 Neck pain, chronic 11/22/2023 Pure hypercholesterolemia - recommending statin therapy and awaiting response. 02/17/2022 Overview (02/18/2022): The 10-year ASCVD risk score (Shakeel LOPEZ JrCierra, et al., 2013) is: 5.3% Values used to calculate the score: Age: 46 years Sex: Male Is Non- : No Diabetic: No Tobacco smoker: Yes Systolic Blood Pressure: 130 mmHg Is BP treated: No HDL Cholesterol: 69 mg/dL Total Cholesterol: 223 mg/dL Primary osteoarthritis of both first carpometaca rpal joints 06/10/2021 Hip pain, chronic, right 06/10/2021 Carpal tunnel syndrome, bilateral 06/10/2021 Chronic thumb pain, bilateral 06/10/2021 Gastroesophageal reflux disease 07/18/2020 Hiatal hernia 07/18/2020 Chronic bilateral low back pain with bilateral s ciatica 12/11/2019 Paresthesia of both hands 12/11/2019 History of adenomatous polyp of colon 10/18/2019 Overview (10/18/2019): Dr. Lucio/GI 11/02 Diverticulosis of colon 10/18/2019 Tobacco use 09/11/2019 Coronary artery disease invo lving [place] coronary artery of [place] heart without angina pectoris 09/11/2019 Moderate single current epis ode of major depressive disorder 09/11/2019 FATMATA (generalized anxiety disorder) 09/11/2019 Unilateral inguinal hernia w ithout obstruction or gangrene, left, spontaneously reducible 09/03/2016 Cigarette nicotine dependence without complicati on 09/03/2016 S/P laparoscopic sleeve gastrectomy 09/03/2016 Resolved Problems Problem Noted Date Diagnosed Date Resolved Date Positive cardiac stress test 03/08/2024 04/03/2024 Posterolateral cervical muscle strain 11/25/2023 09/11/2024 Worsening headaches 11/22/2023 09/11/20 Closed nondisplaced fracture of fifth metatarsal bone of right foot with routine healing 06/10/2021 09/11/2024 Alcohol use disorder, severe, dependence 05/29/2021 11/22/2023 Obstructive sleep apnea of adult 01/31/2018 02/16/2022 Morbid obesity due to excess calories 09/03/2016 06/10/2021 redundant skin and subcutaneous tissue of 09/03/2016 12/16/2020 Localized adiposity of abdom en/redundant pannicular skin obscuring inguinal canals 09/03/2016 12/16/2020 Chest pain 12/16/2020 Encounters Date Type Department Care Team Description 07/17/2025 Refill [facility] Care [address] [place] [id number] Gurmeet Freire MD MEDICATION REFILL from Last 3 Months Immunizations Immunization Administration Dates Next Due CovWindsor Circle primary monoval ent 12+ yr 0.3mL Purple cap 07/01/2021,06/10/2021 INFLUENZA VACCINE, QUADR. (F LUZONE; FLULAVAL; FLUARIX; AFLURIA QUADRIVALENT; 6MO+), 0.5 ML (IIV4) 11/22/2023,10/06/2021,09/11/2019,2017 PNEUMOCOCCAL PCV20 CONJ VAC IM 03/15/2023 PNEUMOCOCCAL PPSV23 11/29/2017 TD, HISTORIC VACCINE 03/11/2023 TDAP (7yrs+) 10/25/2017 TDAP, HISTORIC VACCINE 03/11/2023 iNFLUENZA VACCINE, RECOM-MARK, QUADR. (FLUBLOCK QUADRIVALENT; 18Y+) (RIV4) 11/01/2022 Family History Medical History Relation Name Comments Aneurysm Father aortic Cancer - Colon Father Lung Cancer Father mets to brain, age 67, Possibly mets to colon Aneurysm Maternal Grandfather Stroke Maternal Grandfather Dementia Maternal Grandmother CAD (Coronary Artery Disease) Paternal Grandfather Cancer Paternal Grandmother ovarian , mets to colon Relation Name Status Comments Father Maternal Grandfather Maternal Grandmother Alive Mother Alive Paternal Grandfather Paternal Grandmother Social History Tobacco Use Types Packs/Day Years Used Date Smoking Tobacco: Every Day Cigarettes 1 7 Started: 2017; Last attempted to quit: 04/17/2024 Cigars Passive Smoke Exposure: Past Smokeless Tobacco: Former Tobacco Cessation:Ready to Q uit: Not Asked; Counseling Given: Not Answered Alcohol Use Standard Drinks/Week Comments Yes 21 (1 standard drink = 0.6 oz pu re alcohol) AUDIT-C Answer Date Recorded Q1: How often do you have a drink containing alcohol? Never 10/09/2024 Q2: How many drinks containi ng alcohol do you have on a typical day when you are drinking? Patient does not drink Q3: How often do you have si x or more drinks on one occasion? Never 10/09/2024 Overall Financial Resource Strain (CARDIA) Answe r Date Recorded How hard is it for you to pa y for the very basics like food, housing, medical care, and heating? Not hard at all 10/09/2024 PHQ-2 Answer Date Recorded Patient Health Questionnaire-2 Score 0 02/19/2025 [facility] - Occupational Stress Questionnaire Answer Date Recorded Do you feel stress - tense, restless, nervous, or anxious, or unable to sleep at night because your mind is troubled all the time - these days? Not at all 10/09/2024 Hunger Vital Sign Answer Date Recorded Within the past 12 months, y ou worried that your food would run out before you got the money to buy more. Never true 10/09/20 24 Within the past 12 months, t he food you bought just didn't last and you didn't have money to get more. Never true 10/09/2024 PRAPARE - Transportation Answer Date Re corded In the past 12 months, has l ack of transportation kept you from medical appointments or from getting medications? No 09/16 In the past 12 months, has l ack of transportation kept you from meetings, work, or from getting things needed for daily living? No 10/09/2024 Housing Stability Vital Sign Answer Ran e Recorded In the last 12 months, was t here a time when you were not able to pay the mortgage or rent on time? No 06/01/2024 Number of Places Lived in the Last Year Not on f ile 06/01/2024 In the last 12 months, was t here a time when you did not have a steady place to sleep or slept in a chcf (including now)? No 06/01/2024 Housing Stability Vital Sign Answer Ran e Recorded In the last 12 months, was t here a time when you were not able to pay the mortgage or rent on time? No 10/09/2024 In the past 12 months, how m any times have you moved where you were living? 1 10/09/2024 At any time in the past 12 m [facility], were you homeless or living in a chcf (including now)? 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 Not on file Not on file Not on file Last Filed Vital Signs Vital Sign Reading Time Taken Comments Blood Pressure 125/86 04/02/2025 2:16 PM CDT Pulse 116 04/02/2025 2:16 PM CDT Temperature 36.6 C (97.8 F) 02/26/2025 2:08 PM CDT Respiratory Rate 18 03/05/2025 10:08 AM CDT Oxygen Saturation 99% 04/02/2025 2:16 PM CDT Inhaled Oxygen Concentration - - Weight 129.7 kg (286 lb) 04/02/2025 2:16 PM CDT Height 177.8 cm (5' 10) 04/02/2025 2:16 PM CDT Body Mass Index 41.04 04/02/2025 2:16 PM CDT Plan of Treatment Upcoming Encounters Date Type Department Care Team (Late st Contact Info) Description 10/02/2025 10:00 AM MARKETING TRAFFIC MANAGER Office Visit [facility] Heart & Vascular Care [address], [facility] [address] [place] [address] [place] [address] [address] [place] [address] 03/04/2026 1:00 PM CDT Office Visit [facility] [place] [address] [facility] , [facility] [address] [place] [address] Lauren Lowe, TERMITE INSPECTOR-MILIEU TECHNICIAN [address] [facility] [address] [place] [address] Health Maintenance Due Date Last Done Comments COLOGUARD (AGES 45-75) - COLON CA SCREENING 1974 CT COLONOGRAPHY - COLON CA SCREENING 1974 FIT - COLON CA SCREENING 1974 FLEX SIG - COLON CA SCREENING 1974 ZOSTER VACCINE (1 of 2) 2024 COLON MONITORING 10/16/2024 10/16/2019 Colorectal Cancer Screening 10/16/2024 COVID-19 VACCINE (3 - season) 2025 07/01/2021, 06/10/2021 INFLUENZA VACCINE (#1) 2025 4, 11/01/2022, 10/06/2021, Additional history exists SCREENING FOR DIABETES 03/19/2028 5, 10/10/2024, 10/10/2024, Additional history exists COLONOSCOPY - COLON CA SCREENING 10/16/2029 10/16/2019 DTAP/TDAP/TD VACCINES (4 - Td or Tdap) 03/11/2033 03/11/2023, 03/11/2023, 10/25/2017 PNEUMOCOCCAL VACCINE 50+ Completed 03/15/2023, 11/15 HEPATITIS C SCREENING Completed 03/29/2023 HIV SCREENING Completed 03/29/2023 DEPRESSION SCREENING Completed 02/26/2025, 02/16/2024, 02/16/2024, Additional history exists HEPATITIS B VACCINE Discontinued HIB VACCINE Aged Out No longer eligi ble based on patient's age to complete this topic HPV VACCINE Aged Out No longer eligi ble based on patient's age to complete this topic MENINGOCOCCAL (Group B) VACCINE SHARED DECISION-MAKING Aged Out No longer eligible based on patient's age to complete this topic MENINGOCOCCAL GROUPS A/C/Y/W VACCINE Aged Out No longer eligible based on patient's age to complete this topic Medical Devices Implanted Type Area Medical Dosimetrist Device Identifier Shelf Expiration Date Model / Serial / Lot Screw Set Ti 4mm Spne Crv Ant Slf-Tap Implanted:Qty: 2 on 05/31/2024 by Viktor Flores MD at [facility] N/A: Spine Cervical [employer] 110.050 / / Graft Bone Crstn Asr Dipak Cnc Lrdtc Blck - [id number] Implanted:Qty: 1 on 05/31/2024 by Viktor Flores MD at [facility] N/A: Spine Cervical Spinal [employer] 08/12/2026 [id number] / [id number] / [id number] Screw 4mm 16mm Ant Cspn Slfdrl Rgd Asr Implanted:Qty: 2 on 05/31/2024 by Viktor Floers MD at [facility] N/A: Spine Cervical [facility] 110.016 / / Screw 4mm 16mm Std Spne Slfdrl Asr Ti Implanted:Qty: 6 on 05/31/2024 by Viktor Flores MD at [facility] N/A: Spine Cervical [facility] 110.616 / / Graft Bone Crstn Asr Dipak Cnc Lrdtc Blck - [id number] Implanted:Qty: 1 on 05/31/2024 by Viktor Flores MD at [facility] N/A: Spine Cervical Spinal [employer] 11/22/2026 [id number] / [id number] / [id number] Graft Bone Tissue Lrdtc Algrf Ant Spt - [id number] Implanted:Qty: 1 on 05/31/2024 by Viktor Flores MD at [facility] N/A: Spine Cervical Sp[employer] 06/28/2026 [id number] / [id number] / [id number] Plate 3 Lvl Spne Crv Ant 54mm Asr Ti Implanted:Qty: 1 on 05/31/2024 by Viktor Flores MD at [facility] N/A: Spine Cervical [facility] 110.354 / / Procedures Procedure Name Priority Date/Time Associated Diagnosis Comments COMPREHENSIVE METABOLIC PANEL Routine 03/19/2025 9:16 AM CDT Bilateral flank pain HEPATITIS C ANTIBODY Routine 03/29/2023 9:02 AM CDT Need for hepatitis C screening test HIV-1 HIV-2 ANTIBODY + HIV P24 AG PANEL Routine 03/29/2023 9:02 AM CDT Screening for HIV (human immunodeficiency virus) ENDOSCOPY, COLON, SCREENING Routine 10/16/2019 Family history of colon cancer in father from Last 3 Months or Most Recently Relevant to Health Maintenance Results * (ABNORMAL) COMPREHENSIVE METABOLIC PANEL (03/19/2025 9:16 AM CDT) Pathologist [facility] Glucose 105(H) 70 - 99 mg/dL [facility] ACCOUNT BILL BUN 14 6 - 24 mg/dL [facility] ACCOUNT BILL Creatinine 0.95 0.76 - 1.27 mg/dL [facility] ACCOUNT BILL eGFR by CKD-EPI 98 >59 mL/min/1.7 3 [facility] ACCOUNT BILL BUN/Creatinine Ratio 15 9 - 20 [facility] ACCOUNT BILL Sodium 142 134 - 144 mmol/L [facility] ACCOUNT BILL Potassium 4.3 3.5 - 5.2 mmol/L [facility] ACCOUNT BILL Chloride 104 96 - 106 mmol/L [facility] ACCOUNT BILL CO2 23 20 - 29 mmol/L [facility] ACCOUNT BILL Calcium 9.1 8.7 - 10.2 mg/dL [facility] ACCOUNT BILL Protein Total 7.0 6.0 - 8.5 g/dL [facility] ACCOUNT BILL Albumin 4.5 4.1 - 5.1 g/dL [facility] ACCOUNT BILL Globulin Total 2.5 1.5 - 4.5 g/dL [facility] ACCOUNT BILL Bilirubin Total 1.0 0.0 - 1.2 mg/dL [facility] ACCOUNT BILL Alkaline Phosphatase 107 44 - 121 IU/L [facility] ACCOUNT BILL AST 40 0 - 40 IU/L [facility] ACCOUNT BILL ALT 34 0 - 44 IU/L [facility] ACCOUNT BILL Blood BLOOD SPECIMEN / Unknown 03/19/2025 9:16 AM CDT 03/19/2025 Narrative [facility] ACCOUNT BILL - 03/20/2025 6:09 AM CDT Performed at: 01 - [facility] [id number] Audience Coordinator: Jamarcus Valderrama PhD, Phone: [phone] us Adela Llanos MD LAB - CHEMISTRY ORDERABLES Final Result [facility] ACCOUNT BILL [address] [place] [address] * HIV-1 HIV-2 ANTIBODY + HIV P24 AG PANEL (03/29/2023 9:02 AM CDT) Pathologist [facility] HIV Screen 4th Generation w Reflex Non Reactive Non Reactive [facility] INSURANCE BILL Comment: HIV Negative HIV-1/HIV-2 antibodies and HIV-1 p24 antigen were NOT detected. There is no laboratory evidence of HIV infection. FASTING Blood BLOOD SPECIMEN / Unknown 03/29/2023 9:02 AM CDT 03/29/2023 Narrative Resulting Agency Comment Lab Testing performed at: [facility] [address] [place] [id number] Theo GRAHAM-C LAB - CHEMISTRY ORDERABLES Cathi l Result Performing Organization Address [facility] Co de Phone Number [facility] INSURANCE BILL [address] [place] [address] * HEPATITIS C ANTIBODY (03/29/2023 9:02 AM CDT) [facility] Hepatitis C Antibody Non Reactive Non Reactive [facility] INSURANCE BILL Comment: HCV antibody alone does not differentiate between previously resolved infection and active infection. Equivocal and Reactive HCV antibody results should be followed up with an HCV RNA test to support the diagnosis of active HCV infection. FASTING Blood BLOOD SPECIMEN / Unknown 03/29/2023 9:02 AM CDT 03/29/2023 Narrative Resulting Agency Comment Lab Testing performed at: [address] [id number] Theo GRAHAM-Kanwal LAB - CHEMISTRY ORDERABLES Cathi l Result Performing Organization Address [facility] de Phone Number [facility] INSURANCE BILL [address] [place] [address] * ENDOSCOPY, COLON, SCREENING (10/16/2019) Kelvin Lucio MD GI PROCEDURE ORDERABLES Final Result Performing Organization Address City/State/[facility] Co de Phone Number [facility] RESULT SCAN from Last 3 Months or Most Recently Relevant to Health Maintenance Insurance [facility] Advance Directives * Full Code (Latest Code Status on File) Date Activated Date Inactivated Comments 10/09/2024 3:08 PM 10/10/2024 2:16 PM * Full Code Date Activated Date Inactivated Comments 05/31/2024 3:55 PM 06/01/2024 4:56 PM * Full Code Date Activated Date Inactivated Comments 03/31/2024 12:38 PM 03/31/2024 3:41 PM Care Teams Pre Sales Technical Engineer Relationship Specialty Start Date End Date Adela Llanos MD [address] [phone] PCP - General Family Medicine 03/02/23 Mikey Delaney MD [address] [place] [address] Orthopedic Surgery 11/22/23
--- OUTSIDE RECORDS SUMMARY | 2025-08-12 12:26 | XMS_ITS | Encounter Summary ---
Author Organization [facility] Address [address] [place] [address] Phone Care Team Providers Care Slag Skimmer Name Role Phone Provider, Not On File Primary Care Provider Unav ailable Anil Santiago MD Unavailable [phone] Yulisa Andino APRN, MARINE DESIGNER Unavailable Provider, Not On File Primary Care Provider Unav ailable Gerard Davis MD Unavailable Theo Shrestha PLASTER MACHINE OPERATOR, MARINE DESIGNER Unavailable [phone] Reason for Visit * Reason Comments Medication Refill Encounter Details Date Type Department Care Team (Late st Contact Info) Description 03/30/2023 Refill [facility] [address] [place] [phone] Anil Santiago MD [address] [facility] [address] [address] Medication Refill Social History Tobacco Use Types [...] st Contact Info) Description 11/13/2025 10:45 AM HEALTH EDUCATION DIRECTOR Office Visit [facility] [address] [place] [address] Theo Shrestha APRN, MARINE DESIGNER [address] [place] [address] documented as of this encounter Visit Diagnoses Not on filedocumented in this encounter Care Teams Slag Skimmer Relationship Specialty Start Date End Date Provider, Not On File [place] PCP - General 05/27/20 02/05/24 Provider, Not On File [place] PCP - General 02/06/24 Anil Santiago MD [address] [address] Consulting Physician Urology 08/12/22 Yulisa Andino APRN, MARINE DESIGNER [address] [place] [address] Nurse Practitioner Advanced Practice Nurse 11/02/23 Gerard Davis MD [address] [place] [address] Consulting Physician Gastroenterology 12/13/23 02/01/25 Theo Shrestha APRN, MARINE DESIGNER [address] [place] [address] Nurse Practitioner Advanced Practice Nurse 04/11/25 documented as of this encounter
--- OUTSIDE RECORDS SUMMARY | 2025-08-12 12:26 | XMS_ITS | Clinical Summary ---
Author Organization [facility] Address [address] [place] [address] Phone Care Team Providers Care Block Making Machine Operator Name Role Phone Unavailable Primary Care Provider Unavailabl e Social History Tobacco Use Types Packs/Day Years Used Date Smoking Tobacco: Never Assessed Sex and Gender Information Value Date Recorded Sex Assigned at Not on file Legal Sex Male 8:38 AM CDT Gender Identity Not on file Sexual Orientation Not on file Plan of Treatment Health Maintenance Due Date Last Done Comments HEPATITIS B VACCINES (1 of 3 - 19+ 3-dose series) 1993 COLORECTAL SCREENING 2019 Colorectal Cancer Screening 2019 FIT-DNA Q 3 years 2019 FIT/FOBT Q 1 year 2019 Flex Sig/CT Colonography Q 5 years 2019 ZOSTER VACCINE (1 of 2) 2024 INFLUENZA VACCINE (#1) 2025 , 11/01/2022, 10/06/2021, Additional history exists COVID-19 Vaccine (2024-2 6 season) 2025 07/01/2021, 06/10/2021 DTAP/TDAP/TD VACCINES (4 - T d or Tdap) 03/11/2033 03/11/2023, 03/11/2023, 10/25/2017 Insurance [employer] [id number] Member Subscriber Plan / Payer (Ef fective 2023-Present) Name:Juan Dean Relation to Subscriber:Self Name:Juan Dean Payer ID:[id number] (NAIC) Type:HMO Address: [facility] [id number] [place] [id number]
--- NOTE | 2025-08-12 13:17 | PC.NURSE ---
Patient reports his nausea and throat burning is gone, able to lay down with out any discomfort. ERP updated.
== END 2025-08-12 13:40 | disposition home or self-care (01) ==
PROVIDERS: Emergency Provider Emergency Medicine
DX: R11.10 Vomiting, unspecified (principal); I10 Essential (primary) hypertension; E78.5 Hyperlipidemia, unspecified; E11.9 Type 2 diabetes mellitus without complications; Z87.891 Personal history of nicotine dependence
CPT/HCPCS: 36415; 71045; 80053; 82272; 83690; 85025; 85610; 85730; 96361; 96374; 99284; A9270; J2405; J7030